=== PATIENT | male | born 1930 | race Caucasian/White ===

== ENCOUNTER 2017-09-02 09:26 | Emergency (ER) | payer OTHER, BC ==
[~2017-09-02] VITALS: Ht 193 cm; Wt 110.7 kg
[~2017-09-02 09:26] MED LIST: ABREVA2 GM TOP; ALLOPURINOL 10100 M1 PO; ALTOPREV40 M1; BUTRANS1 EAC3 TD; CENTRUM SILVER1 EAC2 PO; CIPRO500 MG PO; COLACE100 MG PO; COZAAR 50 MG TA50 M2; COZAAR 50 MG TA50 M2 PO; CUBICIN500 MG IVPB; DEMADEX20 MG PO; DEX4 GLUCOSE1 EACH PO; DEXTROSE 5025 GM/SYR IV PUSH; DULCOLAX5 MG PO; DUONEB 2.5-0.5 M3 ML INH; ENOXAPARIN30 MG/0.1 SUBQ; FENTANYL PA12 MCG/HR TD; FEVERALL650 MG RECTAL; FLOMAX0.4 MG PO; GABAPENTIN 100100 MG PO; GLIPIZIDE 10 MG10 MG PO; GLUCAGEN1 MG IM; GLUCOTROL5 MG PO; GLUTOSE GEL 1515 G1 PO; GUAIFEN-CODEIN120 ML PO; HYDROCODON-ACE1 EAC8 PO; HYDROCODONE-APA1 TA1 PO; IBUPROFEN 400400 M2; IBUPROFEN200 M1 PO; KEFLEX500 M1 PO; LIPITOR10 MG PO; LORAZEPAM 22 MG/1 ML IV PUSH; LOVASTATIN 20 M20 MG PO; MEROPENEM500 MG IV; NEURONTIN 300300 M1; NEURONTIN 300300 M1 PO; NORVASC10 MG PO; NOVOLOG100 UNIT/1 SUBQ; NYAMYC15 GM TOP; PERCOCET 7.5-31 EACH PO; PREDNISONE 20 M20 MG PO; PREDNISONE 5 MG5 M1; PROBIOTIC1 EAC1 PO; PROTONIX40 M4 PO; PULMICORT0.5 MG/22 INH; RENVELA800 MG PO; RESTASIS1 EACH OPHTHALMIC; RIFAMPIN 300 M300 M1 PO; STOOL SOFTENER100 MG PO; TENORMIN50 MG PO; TESSALON PERLE100 MG PO; TYLENOL325 MG PO; ZANAFLEX4 MG PO
== END 2017-09-02 18:22 | disposition home or self-care (01) ==
LOC: ER 09:26
DX: S61.211A Laceration without foreign body of left index finger without damage to nail, initial encounter (principal); S61.217A Laceration without foreign body of left little finger without damage to nail, initial encounter; S29.012A Strain of muscle and tendon of back wall of thorax, initial encounter; E11.9 Type 2 diabetes mellitus without complications; I10 Essential (primary) hypertension; Z88.6 Allergy status to analgesic agent; Z87.891 Personal history of nicotine dependence; W01.0XXA Fall on same level from slipping, tripping and stumbling without subsequent striking against object, initial encounter; Y93.89 Activity, other specified; Y92.89 Other specified places as the place of occurrence of the external cause; Y99.8 Other external cause status

== ENCOUNTER 2018-08-29 12:21 | Inpatient (IN) | payer OTHER, BC ==
[~2018-08-29] VITALS: Ht 193 cm; Wt 110.1 kg
--- NOTE | ~2018-08-29 | HC ---
[facility] [place] [address] CONSULTATION Name: GODFREY LEMUS Room #: 216-P ADM IN M.R.#: [id number] Admission: 08/29/18 ������������������ Attend Phys: Dewayne Gallo MD Discharge: ������������������ Date of : 32 Report #: [id number] THIS REPORT FOR: //name// CC: Myles Gallo REASON FOR CONSULTATION: Hyperkalemia. REASON FOR PRESENTATION: Post fall. HISTORY OF PRESENT ILLNESS: This is a very well-known patient. He is an 88-year-old who we had evaluated in the past for an acute kidney injury requiring dialysis for about one year. He presented yesterday after a fall and was found to have a fracture of the right hip. He was found to have an elevated creatinine and hyperkalemia mandating Nephrology consultation before proceeding with the surgical procedure. He has a very complicated history including MSSA bacteremia of the left foot that has required vancomycin for an extended period of time and resulting in an acute kidney injury requiring hemodialysis. He denies chest pain or shortness of breath. No fever or chills. He is now following with Dr. Benitez. He used to follow with Dr. Castillo in the past. PAST MEDICAL HISTORY: 1. Atrial fibrillation. 2. Hypertension. 3. Diabetes mellitus. 4. MSSA bacteremia. 5. Chronic kidney disease. 6. Umbilical hernia repair. 7. Cataract surgery. MEDICATIONS: 1. Sevelamer. 2. Gabapentin. 3. Atenolol. 4. Torsemide. 5. Glipizide. ALLERGIES: MORPHINE. SOCIAL HISTORY: He is an ex-smoker. No drug or alcohol abuse. REVIEW OF SYSTEMS: GENERAL: No fever or chills. CARDIOVASCULAR: No chest pain or palpitation. PULMONARY: No cough or hemoptysis. GASTROINTESTINAL: No nausea or vomiting. [facility] [address] [place] [address] CONSULTATION Name: GODFREY LEMUS Room #: 216-P [facility] IN [facility].#: [id number] Admission: 08/29/18 ������������������ Attend Phys: Dewayne Gallo MD Discharge: ������������������ Date of : 32 Report #: [id number] GENITOURINARY: No frequency, no urgency. MUSCULOSKELETAL: As per the history of present illness. PHYSICAL EXAMINATION: GENERAL: He is alert, oriented, in no apparent distress. VITAL SIGNS: Blood pressure is 149/56. HEAD AND NECK: No jugular venous distention, no bruit, no thyromegaly. CHEST: No crackles. CARDIOVASCULAR: No rub. ABDOMEN: Soft, nontender. LOWER EXTREMITIES: No edema, tenderness over the right hip area. LABORATORY DATA: Reviewed. White blood cell count 14.3. Sodium 140, potassium is down to 5.6 from 7.3, chloride is 108, carbon dioxide is 20, creatinine is down to 2.3. ASSESSMENT, IMPRESSION, PLAN: 1. Acute kidney injury. 2. Hyperkalemia. 3. Fracture, proximal femur. 4. We will retreat his hyperkalemia. 5. Source of hyperkalemia is probably dietary. 6. Treat his acidosis. 7. Should be ready to proceed with the planned surgery after we check his potassium this afternoon and it normalizes or in the morning after normalization of his potassium. ��������������������������������������������� ���������������������������������������� By: ��������������������������������������������� [id number] Juarez Martinez MD /nt
[2018-08-29 13:52] LABS: ABSOLUTE NEUTROPHILS 12.7 thou/uL (1.4-8.2); BASOPHILS 0.7 % (0.0-2.0); EOSINOPHILS 0.8 % (0.0-3.0); HEMATOCRIT 40.9 % (42.0-52.0); HEMOGLOBIN 13.8 gm/dL (14.0-18.0); LYMPHOCYTES 5.5 % (24.0-44.0); MCHC 33.8 g/dL (28.0-37.0); MCV 106.5 fL (80.0-100.0); PLATELET COUNT 193 thou/uL (150-400); RBC 3.84 mil/uL (4.50-6.00); RDW 14.6 % (10.5-14.5); WBC 14.4 thou/uL (4.0-11.0)
[2018-08-29 14:01] LABS: CALCIUM 9.1 mg/dL (8.5-10.1); CREATININE 2.9 mg/dL (0.7-1.3)
[2018-08-29 14:06] LABS: POTASSIUM 6.2 mmol/L (3.5-5.1)
[2018-08-29 15:43] VITALS: BP 187/83
--- NOTE | 2018-08-29 16:06 | NUR ---
INFORMED INPATIENT NURSE OF ABNORMAL LABS, UMANZOR NOT PLACED OF YET, FENTANYL AND RESULTS OF XRAY.
[2018-08-29 16:09] LABS: CALCIUM 8.8 mg/dL (8.5-10.1); CREATININE 2.8 mg/dL (0.7-1.3)
[2018-08-29 16:11] LABS: POTASSIUM 7.3 mmol/L (3.5-5.1)
[2018-08-29 16:30] VITALS: BP 166/71
--- NOTE | 2018-08-29 18:48 | NUR ---
ARRIVED ON CCU FROM ED. MOVED TO BED WITH 4 PERSON TRANSFER USING SLIDE SHEET. RIGHT HIP PAIN DESCRIBES 10/10. REMAINS NPO FOR POSSIBLE SURGERY. IV INFUSING WITHOUT DIFFICULTY. SON AT BEDSIDE.
[2018-08-29 20:24] VITALS: BP 148/49
[2018-08-30 00:01] VITALS: BP 140/35
[2018-08-30 04:29] VITALS: BP 149/56
[2018-08-30 05:42] LABS: HEMATOCRIT 35.3 % (42.0-52.0); MCH 36.1 pg (26.0-34.0); MCHC 33.9 g/dL (28.0-37.0); MCV 106.6 fL (80.0-100.0); RBC 3.31 mil/uL (4.50-6.00); RDW 14.6 % (10.5-14.5); WBC 14.3 thou/uL (4.0-11.0)
[2018-08-30 05:53] LABS: CALCIUM 8.1 mg/dL (8.5-10.1); CREATININE 2.3 mg/dL (0.7-1.3); PHOSPHORUS 3.8 mg/dL (2.5-4.9)
[2018-08-30 05:55] LABS: POTASSIUM 5.6 mmol/L (3.5-5.1)
[2018-08-30 08:18] VITALS: BP 162/61
--- NOTE | 2018-08-30 11:42 | NUR ---
Assumed pt care at 7am.Pt in bed alert and oreiented x4 but very anxious and constantly worried about not eating or having bowel movement for the past [address] Baldwin here,wanted pt secure clearance prior to surgery.Dr Gallo notified, he said pt potassium needs fixing first and will take care of that later.Son at bs visiting.Breakfast ordered and given to pt with am meds.Pain shot given as ordered.Will continue to monitor.
[2018-08-30 12:48] VITALS: BP 163/69
[2018-08-30 12:57] LABS: URINE BILIRUBIN NEGATIVE (Negative); URINE BLOOD 3+ (Negative); URINE CLARITY CLEAR; URINE COLOR YELLOW; URINE GLUCOSE-RANDOM* TRACE (Negative); URINE KETONES NEGATIVE (Negative); URINE LEUKOCYTES-REFLEX NEGATIVE (Negative); URINE NITRITE-REFLEX NEGATIVE (Negative); URINE PROTEIN (DIPSTICK) 2+ (Negative); URINE SPECIFIC GRAVITY 1.015 (1.005-1.035); URINE UROBILINOGEN 0.2 E.U./dl (0.2-1.0)
[2018-08-30 13:17] LABS: BACTERIA-REFLEX None Seen /HPF (None Seen); CASTS None Seen /LPF (None Seen); CRYSTALS None Seen /LPF (None Seen); MUCUS 0-3 Light strn/LPF (None Seen); SQUAMOUS 0-3 Few /LPF (0-3); URINE RBC 0-2 Rare /HPF (0-2); URINE WBC-REFLEX 6-15 Few /HPF (0-5)
[2018-08-30 17:32] VITALS: BP 182/56
--- NOTE | 2018-08-30 17:59 | EKG ---
[address] [address] ELECTROCARDIOGRAM REPORT Name: GODFREY LEMUS Room #: 216-P ADM IN M.R.#: [id number] ������������������ Admission: 08/29/18 ������������������ Attend Phys: Dewayne Gallo MD Discharge: ������������������ Date of : 32 Report #: [id number] ����������������������������������������������������������������� [id number] THIS REPORT FOR: //name// [facility] ED Test Date: 2018-08-29 Test Time: 14:59:50 Pat Name: GODFREY LEMUS Department: Room: 216 Gender: M Entry Level Web Developer: [facility] : 1930 Requested By: Anton Durbin Order Number: [id number] MD: Vincent Wick Measurements Intervals [place] Rate: 53 P: 81 LA: 62 QRS: 30 QRSD: 103 T: 58 QT: 461 QTc: 433 Interpretive Statements Sinus rhythm Short LA interval Compared to ECG 08/01/2015 09:23:36 Short LA interval now present Sinus arrhythmia no longer present Electronically Signed On 08-30-2018 17:59:27 CDT by Vincent Wick [email or web address] ��������������������������������������������� <ELECTRONICALLY SIGNED> ���������������������������������������� By: Vincent Wick MD ��������������������������������������������� 08/30/18 1759 [id number] Vincent Wick MD /CHRISTOPHE
[2018-08-30 19:21] VITALS: BP 184/57
[2018-08-31] VITALS (16 sets, daily range): BP systolic 131–177; BP diastolic 41–99
--- NOTE | 2018-08-31 03:45 | NUR ---
PATIENTS CARE WERE ASSUMED AT SHIFT CHANGE. PATIENT WAS ASSESSED AND MEDS WERE PASSED. PATIENT DID WET THE BED THIS SHIFT AND A LINEN CHANGE WAS NEEDED. IT TOOK FOUR OF US TO CHANGE THE BED DUE TO HIS FX LEG. HOURLY ROUNDING WAS DONE THE BED IS IN A LOW AND LOCKED POSITION. THE BED ALARM IS ON AND PATIENTS DAUGHTER IS AT THE BED SIDE.
[2018-08-31 04:19] LABS: ALBUMIN 2.9 g/dL (3.4-5.0); CALCIUM 8.3 mg/dL (8.5-10.1); PHOSPHORUS 3.5 mg/dL (2.5-4.9); POTASSIUM 5.7 mmol/L (3.5-5.1)
[2018-08-31 04:45] LABS: ABSOLUTE NEUTROPHILS 12.7 thou/uL (1.4-8.2); BASOPHILS 0.6 % (0.0-2.0); EOSINOPHILS 1.8 % (0.0-3.0); HEMATOCRIT 34.6 % (42.0-52.0); HEMOGLOBIN 11.8 gm/dL (14.0-18.0); LYMPHOCYTES 5.8 % (24.0-44.0); MCH 36.4 pg (26.0-34.0); MCV 107.2 fL (80.0-100.0); PLATELET COUNT 169 thou/uL (150-400); POLYS 84.8 % (36.0-66.0); RBC 3.23 mil/uL (4.50-6.00); RDW 14.4 % (10.5-14.5)
--- NOTE | 2018-08-31 11:41 | HC ---
[facility] [place] [address] CONSULTATION Name: GODFREY LEMUS Room #: 216-P ADM IN M.R.#: [id number] Admission: 08/29/18 ������������������ Attend Phys: Dewayne Gallo MD Discharge: ������������������ Date of : 32 Report #: [id number] THIS REPORT FOR: //name// CC: Myles Gallo DATE OF SERVICE: 08/30/2018 ORTHOPEDIC CONSULTATION CHIEF COMPLAINT: Right thigh pain. HISTORY OF PRESENT ILLNESS: The patient is a pleasant 88-year-old gentleman seen today for evaluation of his right femur fracture. The patient reports that he was ambulating at home moving some boxes, carrying them downstairs, slipped and fell on the stairs and landed on his right side. He sustained an injury to his right femur, was unable to ambulate and was subsequently brought to the [facility] for further care and treatment. He denies loss of consciousness or other injuries. He has had a history of kidney disease and dialysis and has seen Dr. Lopez for this. His potassium was elevated on admission. PAST MEDICAL HISTORY: Significant for multiple hand abrasions, congestive heart failure, end-stage renal disease, hyperkalemia, renal insufficiency. ALLERGIES: MORPHINE. THE PATIENT ALSO REPORTED AN ALLERGY TO VANCOMYCIN, WHICH HE REPORTED CAUSED RENAL FAILURE. PAST SURGICAL HISTORY: Left foot surgeries x 3, 2014, 2016, he reports he developed a Staph infection requiring multiple debridements. Atrial flutter ablation in 2014, TURP, lumbar degenerative disk disease, umbilical hernia repair, cataract surgery. CURRENT MEDICATIONS: Please see current MAR. SOCIAL HISTORY: The patient resides with in a condominium. Reports prior tobacco use. Currently drinks alcohol. Denies recreational drug use. PHYSICAL EXAMINATION: GENERAL: The patient is alert, oriented, answering questions appropriately. VITAL SIGNS: Most recent vitals include temperature 36.7, pulse 63, respirations 18, BP 163/69, pulse ox 95%. EXTREMITIES: Examination of the upper extremities revealed no obvious abnormalities. He reported full motion without tenderness. Pelvis is stable to AP and lateral compression. He has tenderness about the groin, proximal and [facility] [address] [place] [address] CONSULTATION Name: GODFREY LEMUS Room #: 216-P ADM IN M.R.#: [id number] Admission: 08/29/18 ������������������ Attend Phys: Dewayne Gallo MD Discharge: ������������������ Date of : 32 Report #: [id number] proximal to mid thigh deformity is present. Mild swelling is noted. He is unable to actively move the hip and knee due to pain. He has minimal movement in the toes and ankles, but is able to minimally flex and extend the toes. Reports intact sensation. Mild leg edema noted. The left leg demonstrates no obvious tenderness. No wounds or injuries. He has multiple well-healed incisions about the foot. Mild swelling about his left foot is noted. RADIOGRAPHS: Reveal a comminuted proximal femoral shaft/subtrochanteric femur fracture with mild displacement. LABORATORY DATA: Reviewed. Elevated potassium is noted, elevated creatinine. IMPRESSION: 1. Right proximal closed femoral shaft fracture/ subtrochanteric, comminuted. 2. Multiple medical comorbidities. PLAN: Discussed the patient's care with Dr. Gallo this morning. His potassium was still elevated. We will tentatively schedule the patient tomorrow morning for operative repair of his fracture. We have reviewed the risks, benefits, alternatives and potential complications of his injury as well as the proposed treatment. He is interested in proceeding with an intramedullary nailing of his fracture when medically stable. Questions were encouraged and all were answered. The need for postoperative care and therapy was discussed. We will have protective services case worker and physical therapy assess the patient postoperatively as well. We will need to clarify his MRSA status as to whether or not he is a carrier as well as his ability to utilize vancomycin or other antibiotics. Questions were encouraged, all were answered. ��������������������������������������������� <ELECTRONICALLY SIGNED> ���������������������������������������� By: Junior Riojas MD ��������������������������������������������� 08/31/18 1141 1424 0250 Junior Riojas MD /nt
--- NOTE | 2018-08-31 14:19 | NUR ---
Patient returned from sx sp with son at bedside. Patient admits post fall sustaining femor fx. [facility] and [facility]. 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 Patient assists his who son reports she has some memory issues. Son reports his sister assisting with mom. There are 6 children who are supportive and involved. Patient has been at [facility] in past. Reviewed post acute care and role of casemgt with son. Left medicare option list. [facility] following.
--- NOTE | 2018-08-31 18:23 | NUR ---
TO O.R. EARLY THIS SHIFT BY BED. BACK AT 1300. POSTOP VS. MEDICATED FOR RIGHT LEG PAIN PRN. HTN NOTED. POSTOP DRESSINGS X2 RT HIP/THIGH CDI EXCEPT FOR ONE 3X3CM AREA OUTLINED IN TIAIE. ADULT SON AT BEDSIDE. CLEAR LIQUIDS SINCE RETURNING. MINOR URINE LEAK THIS AFTERNOON, PAINFUL LOG ROLLING FOR CLEANUP. PATIENT STATES HE VOIDS EVERY HALF HOUR; 100ML DARK URINE NOTED IN URINAL. UMANZOR PLACED ORDERED FOR PATIENT POSTOP COMFORT AND TO KEEP SURGICAL DRESSINGS CDI. FREQUENT CHECKS; WILL CONTINUE TO MONITOR.
[2018-09-01] VITALS (7 sets, daily range): BP systolic 126–171; BP diastolic 45–64
[2018-09-01 03:16] LABS: HEMATOCRIT 29.4 % (42.0-52.0); HEMOGLOBIN 9.9 gm/dL (14.0-18.0); MCH 36.5 pg (26.0-34.0); MCHC 33.7 g/dL (28.0-37.0); MCV 108.4 fL (80.0-100.0); RBC 2.71 mil/uL (4.50-6.00); RDW 14.2 % (10.5-14.5); WBC 12.9 thou/uL (4.0-11.0)
[2018-09-01 03:20] LABS: ALBUMIN 2.5 g/dL (3.4-5.0); CALCIUM 7.7 mg/dL (8.5-10.1); CREATININE 2.3 mg/dL (0.7-1.3); PHOSPHORUS 3.5 mg/dL (2.5-4.9)
[2018-09-01 03:31] LABS: POTASSIUM 5.4 mmol/L (3.5-5.1)
--- NOTE | 2018-09-01 06:52 | NUR ---
PATIENTS CARES WERE ASSUMED AT SHIFT CHANGE. PATIENT WAS ASSESSED AND MEDS WERE PASSED. PATIENT HAD HIS DIET UPGRADED THIS MORNING AND GETS A BREAKFEST TRAY. HE HAS SOME ANXIETY ABOUT PT GETTING HIM OUT O BED. HOURLY ROUNDING WAS DON. THE BED IS IN A LOW AND LOCKED POSITION. THE BED ALARM IS ON.
--- NOTE | 2018-09-01 17:14 | NUR ---
sp with patient and granddtr at bedside. Patient strongly prefers [facility] for rehab. Granddtr also hopeful [facility] accepted. Provider form completed and on the chart.
--- NOTE | 2018-09-01 18:32 | NUR ---
ASSUMED CARE OF PATIENT IN AM, STATES HE IS HUNGRY AND WANTS HIS BREAKFAST. EXPLAINED THAT BREAKFAST TRAYS WERE ON THEIR WAY. GOT HIM A MILK TO HOLD HIM OVER. NO COMPLAINTS OF PAIN OR NAUSEA. SR ON THE MONITOR. HELPING PATIENT TURN EVERY 2 HOURS. FIRST STOOL AT 0900 WAS VERY STIFF AND DIFFICULT FOR PAITENT. LAXATIVE GIVEN AND SECOND STOOL LARGER AND SOFTER. UP WITH PT TO SIDE OF BED BUT UNABLE TO TOLERATE GETTING TO CHAIR. LM IV ACCIDENTALLY PULLED OUT AND NEW RFA 22G IV PLACED. SALINE LOCK. R HIP DRESSING INTACT WITH SMALL SHADOW OF OLD BLOOD NOTED AND MARKED. ICE PACK PRN, HEELS ELEVATED ON PILLOWS
[2018-09-02 04:54] VITALS: BP 143/52
[2018-09-02 05:29] LABS: ALBUMIN 2.4 g/dL (3.4-5.0); CALCIUM 7.7 mg/dL (8.5-10.1); CREATININE 2.3 mg/dL (0.7-1.3); PHOSPHORUS 3.3 mg/dL (2.5-4.9); POTASSIUM 4.8 mmol/L (3.5-5.1)
--- NOTE | 2018-09-02 06:22 | NUR ---
PT POST OP DAY 2 REPAIR OF FEMUR FX. PT BEEN ON BEDREST WHOLE NIGHT ALTHOUGH REPORTS WORKING WITH PT/OT YESTERDAY . UNWILLING TO SHIFT POSITION OFTEN. DRESSING C/D/I. USING ICE TO ELLEVIATE PAIN. DENIES CHEST PAIN. REPORTS PAIN IN THE R LEG DURING MOVEMENT. NO OTHER COMPLAINS AT THIS TIME. WILL CONTINUE TO FOLLOW PLAN OF CARE.
[2018-09-02 08:00] VITALS: BP 140/65
[2018-09-02 08:25] LABS: HEMATOCRIT 27.5 % (42.0-52.0); HEMOGLOBIN 9.3 gm/dL (14.0-18.0); MCHC 33.9 g/dL (28.0-37.0); MCV 109.2 fL (80.0-100.0); RBC 2.52 mil/uL (4.50-6.00); RDW 14.5 % (10.5-14.5); WBC 10.9 thou/uL (4.0-11.0)
[2018-09-02 08:38] LABS: CALCIUM 8.2 mg/dL (8.5-10.1); CREATININE 2.4 mg/dL (0.7-1.3); MAGNESIUM 2.4 mg/dL (1.8-2.4); POTASSIUM 4.9 mmol/L (3.5-5.1)
[2018-09-02 12:21] VITALS: BP 137/44
[2018-09-02] MEDS ORDERED: MIRALAX17 GM PO (13:02)
[2018-09-02] MEDS ORDERED: HEPARIN SO5000 UNIT/ SUBQ (13:51)
--- NOTE | 2018-09-02 14:50 | NUR ---
Pt accepted for admission to [facility] acute rehab. Pt agreeable and family supportive. Pt's gdtr is a ST here;therefore the pt prefers this location. The pt is doing well postop and has been cleared to dc to rehab today. Family bedside this afternoon. Case discussed with the care team.
--- NOTE | 2018-09-03 12:59 | O ---
[facility] [place] [address] OPERATIVE REPORT Name: GODFREY LEMUS Room #: 216-P [facility] IN M.R.#: [id number] Admission: 08/29/18 ������������������ Attend Phys: Dewayne Gallo MD Discharge: 09/02/18 ������������������ Date of : 32 Report #: [id number] THIS REPORT FOR: //name// CC: Myles Gallo PREOPERATIVE DIAGNOSIS: Right subtrochanteric femur fracture, comminuted, status post fall. POSTOPERATIVE DIAGNOSIS: Right subtrochanteric femur fracture, comminuted, status post fall. PROCEDURE PERFORMED: Right trochanteric femoral nailing of subtrochanteric femur fracture. SURGEON: Junior Riojas M.D. ANESTHESIA: General. FLUIDS: Approximately 500 mL crystalloid. ESTIMATED BLOOD LOSS: Approximately 50 mL. IMPLANTS UTILIZED: Synthes long TFN nail 440 mm x 12 mm, 130 degrees; 105-mm helical locking blade with 2 distal locking screws. DESCRIPTION OF PROCEDURE PERFORMED: After proper identification of the patient and operative site in the preoperative holding area, the operative site was signed by myself. The patient had been cleared by Medicine as well as Anesthesia to proceed with operative intervention today. He was brought back to the operative suite after induction of satisfactory general anesthesia. He was carefully positioned on the [place] fracture table. Well-padded foot stabilization was utilized. The patient's displaced fracture was gently reduced with a simple reduction maneuver and then gentle longitudinal traction. The obliquity of this comminuted fracture keyed in nicely. Moderate soft tissue swelling of the thigh was noted, but the compartments were still soft and palpable. The leg demonstrated mild edema as well as the foot. The hip and leg were then sterilely prepped and draped in the usual manner. Final skin draping was with an [place] isolation drape. Intraoperative C-arm was used throughout the procedure. An incision proximal to the greater trochanter was planned. Skin was incised sharply. Dissection was carried down to the tip of the greater trochanter and an insertion awl was placed on this. It was carefully advanced into the femur. There appeared to be relatively good bone quality. As this was advanced, a guidewire was then utilized and was passed down the intramedullary canal to the more distal aspect of the femur. Its position was verified. Fracture reduction was verified and it was checked throughout the entire length [address] [address] OPERATIVE REPORT Name: GODFREY LEMUS Room #: 216-P [facility] IN M.R.#: [id number] Admission: 08/29/18 ������������������ Attend Phys: Dewayne Gallo MD Discharge: 09/02/18 ������������������ Date of : 32 Report #: [id number] of the femur. At this point, serial reaming up to 13.5 mm in the canal near the isthmus was performed and a 12 mm x 440 mm nail was chosen. Proximal reaming was performed for the trochanteric flare of the nail. The nail was then placed on its insertion handle carefully, impacted into position over the guidewire which was removed. After it was fully seated, its position was checked proximally and distally. Next, through separate more distally based incision, the drill sleeves were advanced to the lateral cortex of the femur, where a guide pin was inserted into the femoral head. Its position was verified to be in satisfactory position in the AP and lateral planes. Outer cortex was reamed and due to the relatively good bone quality, the helical blade reamer was utilized. A 105-mm helical blade was carefully impacted into position. It was extra-articular in the AP, oblique and lateral planes. Proximal locking screw was tightened and then the drill sleeves and guide pin were removed. Next, using perfect mashpee technique distally, both the static and a dynamic locking screw were inserted for that bicortical fixation. Image verified that these were through the nail and all wounds were thoroughly irrigated with normal saline. A #1 Vicryl was used to close the fascia, 2-0 Vicryl for the subcutaneous tissues and final skin closure was with juan josé. A sterile dressing was applied. He was awakened and transferred to the recovery room in stable condition. ��������������������������������������������� <ELECTRONICALLY SIGNED> ���������������������������������������� By: Juinor Riojas MD ��������������������������������������������� 09/03/18 1259 1141 1203 Junior Riojas MD /nt
== END 2018-09-02 14:51 | DRG 480 ==
LOC: ER 12:21 → EROBS 14:58 → 2N 14:58
PROVIDERS: Emergency Medicine; Hospitalist; Internal Medicine; ADMIT Hospitalist
PROC: 0QH606Z Insertion of Intramedullary Internal Fixation Device into Right Upper Femur, Open Approach (ICD-10-PCS; principal; 2018-08-31)
DX: S72.21XA Displaced subtrochanteric fracture of right femur, initial encounter for closed fracture (principal); N17.0 Acute kidney failure with tubular necrosis; I13.2 Hypertensive heart and chronic kidney disease with heart failure and with stage 5 chronic kidney disease, or end stage renal disease; N18.4 Chronic kidney disease, stage 4 (severe); I48.91 Unspecified atrial fibrillation; E87.5 Hyperkalemia; I50.9 Heart failure, unspecified; E11.22 Type 2 diabetes mellitus with diabetic chronic kidney disease; E11.40 Type 2 diabetes mellitus with diabetic neuropathy, unspecified; E11.51 Type 2 diabetes mellitus with diabetic peripheral angiopathy without gangrene; M47.896 Other spondylosis, lumbar region; D63.8 Anemia in other chronic diseases classified elsewhere; D72.829 Elevated white blood cell count, unspecified; G89.4 Chronic pain syndrome; E78.5 Hyperlipidemia, unspecified; Z98.49 Cataract extraction status, unspecified eye; Z88.6 Allergy status to analgesic agent; Z87.891 Personal history of nicotine dependence; Z47.89 Encounter for other orthopedic aftercare; Z88.1 Allergy status to other antibiotic agents; Z79.899 Other long term (current) drug therapy
CPT/HCPCS: 10081; 50010; 50101; 50133; 50386; 50635; 51412; 51538; 51817; 52145; 52304; 55430; 56525; 57092; 62110; 62900; 70005

== ENCOUNTER 2018-09-02 13:23 | Inpatient (IN) | payer OTHER, BC ==
[~2018-09-02] VITALS: Ht 248 cm; Wt 112.6 kg
[~2018-09-02 13:23] MED LIST changes: -HYDROCODONE-APA1 TA1 PO; +MIRALAX17 GM PO; +NORCO 7.5-3251 EACH PO
[2018-09-02] MEDS ORDERED: HEPARIN SO5000 UNIT/ SUBQ (13:51)
--- NOTE | 2018-09-02 15:00 | NUR ---
TO [facility] FOR INPT REHAB. REPORT CALLED TO [place] PAIGE. TAKEN TO [facility] BY RECLINER, ACCOMPANIED BY EDOUARD VÁSQUEZ PT, AND MYSELF. HIS AND DTRS WERE HERE THEN, SO THEY KNOW WHERE HE IS. TELE DC'D; UPDATE GIVEN TO LA PAIGE.
[2018-09-02 15:14] VITALS: BP 147/74
[2018-09-02 16:01] VITALS: BP 147/74
--- NOTE | 2018-09-02 18:31 | NUR ---
88 YO MALE ADMITTED FROM 2N TO ROOM 504. A&OX4, HAS TRANSFERED WITH PT. UMANZOR CATH IN PLACE. POST OP DAY #2. DRSG TO R HIP INTACT NO NEW DRAINAGE NOTED SINCE SURGERY. IV INTACT TO R ARM. DENIES NEED FOR PAIN MED AT THIS TIME. ICE PACK IN PLACE. VSS. PT DID GET BRADYCARDIC ON 2N. ORIENTED PT TO ROOM/ CALL LIGHT.CONSULTS CALLED IN. WILL CONT POC.
[2018-09-02 19:10] VITALS: BP 132/40
[2018-09-02 20:10] VITALS: BP 140/62
[2018-09-02 21:10] VITALS: BP 75/37
--- NOTE | 2018-09-02 21:44 | NUR ---
PT ASSESSMENT COMPLETED AND VSS. MEDS GIVEN ORDERED AND WELL TOLERATED. FALL PRECAUTIONS IN PLACE. ASST WITH REPOSITION FOR COMFORT. ABDUCTER PILLOW. PRN PAIN MEDICATION WORKING FOR BACK AND RIGHT LEG PAIN. SUPPORTIVE FAMILY AT BEDSIDE. SLEEPING WELL. WILL CONTINUE TO MONITOR FREQUENTLY.
[2018-09-03 05:19] LABS: HEMATOCRIT 28.8 % (42.0-52.0); HEMOGLOBIN 9.8 gm/dL (14.0-18.0); MCH 36.8 pg (26.0-34.0); MCV 108.3 fL (80.0-100.0); RBC 2.66 mil/uL (4.50-6.00); RDW 14.5 % (10.5-14.5); WBC 9.7 thou/uL (4.0-11.0)
[2018-09-03 05:34] LABS: ALBUMIN 2.4 g/dL (3.4-5.0); CREATININE 2.3 mg/dL (0.7-1.3); PHOSPHORUS 4.4 mg/dL (2.5-4.9); POTASSIUM 4.9 mmol/L (3.5-5.1)
[2018-09-03 08:09] VITALS: BP 117/35
--- NOTE | 2018-09-03 12:47 | NUR ---
cm visited with pt at bedside after son left from visit and had communion. intro to cm, transition of care and team meeting. pt A & o x 3 and able to make his needs know. c/o of right foot resting nex to foot pedal. bedside nurse assisted with support on right leg while placed soft pillow under pt calf. " that is better thanks"/shelli. pt reported " live in [facility], had fall carrying boxes out in garage. use elevator down to get to garage. still drive. independent prior to hospital. have can, stand to shower, have grab bars. used electric scooter 2 years ago with did dialysis. been to [facility] for rehab before and if need home health use [facility]. have pain from knee to hip constantly."/shelli. letting pt rest, report passed on to bedside nurse for pt c/o pain. will cont following as needed for dc needs.
--- NOTE | 2018-09-03 13:18 | NUR ---
Nutrition: Consult received, no reason stated. Pt admit to rehab S/P femur fx, POD 3. Intake is variable but overall down since surgery which he relates to pain. Reports his granddtr orders his meals. Enjoys supplements. Change to glucerna with hx DM, Carb controlled diet. BG 94-259. Prior hx of ESRD on HD but none x one year. Obtained food preferences. Stable weights. Low risk.
[2018-09-03 15:00] LABS: FOLIC ACID 29.8 ng/mL (8.6-58.9)
[2018-09-03 19:20] VITALS: BP 136/36
--- NOTE | 2018-09-03 20:10 | NUR ---
ASSUMED CARE OF PATIENT AT 0715. PATIENT IS A&OX4, VITAL SIGNS ARE STABLE. PATIENT TRANSFERS TO WITH 1 PERSON ASSISTA USING SLIDING BOARD. PATIENT TAKES MEDICATIONS WHOLE WITH THIN LIQUIDS AND HAS REPORTED PAIN DURING SHIFT, WHICH WAS TREATED WITH MEDICATIONS PER ORDERS. PATIENT PARTICIPATED IN SCHEDULED THERAPIES. UMANZOR CATHETER IN PLACE, ACCU CHECKS AC/HS. IV IN RIGHT ARM FLUSHES APPROPRIATELY AND IS WITHOUT S/S OF COMPLICATIONS, DRESSINGS ARE CLEAN, DRY, AND INTACT. ORIGINAL SURGICAL DRESSINGS TO THE RLE ARE INTACT, SOME DRAINAGE TO MIDDLE DRESSING. FALL PRECAUTIONS ARE IN PLACE AND NURSING WILL CONTINUE TO MONITOR.
--- NOTE | 2018-09-04 03:19 | NUR ---
TURNED TO LEFT SIDE TO KEEP PATIENT OF PURPLR LOW SACRUM. APPRECIATES PERCOCET. RIGHT HIP EDEMATOUS, SEROSANGUINOUS DRAINAGE FROM STAPLED INCISION SITES, BOTH SITES REINFORCED WITH ABD. UMANZOR TO DD
--- NOTE | 2018-09-04 05:00 | NUR ---
ORIGINAL SURGICAL DRESSINGS SATURATED WITH SEROSANGUINOUS DRAINGE MORE CLEAR YELLOW THAN PINK, ALL 3 STAPLED AREAS HAD DRESSINGS REMOVED AND REPLACED WITH ONE FLUFF GAUZE AND ONE HALF OF A [place] BANDAID
[2018-09-04 08:03] VITALS: BP 124/39
[2018-09-04 08:36] LABS: ALBUMIN 2.4 g/dL (3.4-5.0); CALCIUM 8.1 mg/dL (8.5-10.1); CREATININE 2.6 mg/dL (0.7-1.3); PHOSPHORUS 4.8 mg/dL (2.5-4.9)
[2018-09-04 19:50] VITALS: BP 159/64
--- NOTE | 2018-09-04 19:59 | NUR ---
ASSUMED CARE AT APPROX 0715. PATIENT A/O X4. LOW DIASTOLIC BP NOTED, PHYSICIAN NOTIFIED. NO NEW ORDERS RECEIVED, NIGHT RN NOTIFIED OF CURRENT PARAMETERS. PATIENT C/O CONSTIPATION. LAXATIVES ADMINISTERED PER ORDERS, PATIENT HAD SEVERAL BM'S THIS SHIFT, KUB ORDERED, FINDINGS READ MILD CONSTIPATION. PATIENT REPORTED RELIEF BY END OF SHIFT, C/O PAIN/ITCHING IN RECTUM, HEMMORHOIDS NOTED, PREPARATION H ORDERED BY PHYSICIAN. BLOOD GLUCOSE MONITORED, TREATED WITH ORAL MEDS. HIP PRECAUTIONS MAINTIANED, PATIENT'S RLE EDEMATOUS, PULSES PRESENT, EXTREMITY WARM TO TOUCH. DRESSING TO JEFFRY ON RLE CHANGED PRN THIS SHIFT R/T SERO-SANGUINOUS DRAINAGE. PARTICIPATED IN THERAPY THIS DATE, UP TO WC. FALL PRECAUTIONS IN PLACE. ROUNDED ON HOURLY. RESTING IN BED AT CHANGE OF SHIFT.
--- NOTE | 2018-09-04 22:39 | NUR ---
EMERGENCY CONTACT INFORMATION HAS CHANGED. FOR THURSDAY THROUGH THURSDAY, THE EMERGENCY CONTACT IS PT'S DAUGHTER TIFFANY CURTIS AT [phone]. FOR THURSDAY AM THROUGH THURSDAY PM, THE EMERGENCY CONTACT IS AMENA WHITTINGTON, PT'S OTHER DAUGHTER AT [phone], PER NOTE FROM ADMISSIONS LIAISON LILIANA ROMAN OT. THIS WAS PASSED ON TO THE P-SHIFT RN WELL.
--- NOTE | 2018-09-05 03:40 | NUR ---
PATIENT SLEEPY AT CHANGE OF SHIFT. ANSWERS QUESTIONS APPROPRIATELY. DENIES PAIN. DRESSING DRY AND INTACT. C/O CONSTIPATION, HOWEVER SOME RELIEF WAS NOTED YESTERDAY. BS MONITORED PER ORDER. NEW ORDER FOR PREP H COMPLETED, NO C/O ITCHING AT THIS TIME. TOE TOUCH WB ON RIGHT LEG. PATIENT BECAME A LITTLE RESTLESS DURING THE NIGHT AND WAS YELLING OUT WANTING TO GET OUT OF BED. VERY HEAVY TRANSFER AND NOT FOLLOWING INSTRUCTIONS. PATIENT REMAINED IN BED. UMANZOR TO D/D WITH YELLOW URINE. WILL MONITOR.
[2018-09-05 07:06] LABS: GLYCOHEMOGLOBIN (HGB A1C) 7.3 % (4.8-5.6)
[2018-09-05 07:15] VITALS: BP 132/62
--- NOTE | 2018-09-05 19:06 | NUR ---
ASSUMED CARE OF PT AT APPROX. 0715. PATIENT IS A&OX4 AND VITAL SIGNS ARE STABLE. BLOOD GLUCOSE MONITORED AC/HS AND TREATED WITH ORAL MEDICATIONS. PT TAKES MEDICAITONS WHOLE WITH THIN LIQUIDS. SURGICAL SITE IS WELL APPROXIMATED WTIH JEFFRY AND COVERED WITH [place] DRESSINGS AND GAUZE, CHANGED TWICE DURING SHIFT, DUE TO SS DRAINAGE. PATIENT HAS RED BLANCHABLE AREAS TO BUTTOCKS, BARRIER CREAM APPLIED AND PT TURNED Q2H. IV REMOVED FROM RIGHT FOREARM. PATIENT REPORTED "BURNING" FOLLOWING BOWEL MOVEMENT AND WAS TREATED WITH PREPARATION H. PAITNET PAIN TREATED WITH MEDICAITONS PER ORDERS. UMANZOR CATHETER IN PLACE AND DRAINING APPROPRAITELY. FENTANYL PATCH TO THE RIGHT CHEST. FALL PRECAUTIONS IN PLACE AND NURSING WILL CONTINUE TO MONITOR.
[2018-09-05 22:02] VITALS: BP 139/55
--- NOTE | 2018-09-06 02:10 | NUR ---
CONTINUED YELLOW DRAINAGE FROM SURGICAL STAPLED AREAS ON RIGHT UPPER LEG. DUE TO IRRITATION AT EDGE OF 8x6 DRESSING NOTICED AT REMOVAL, OPTIFOAM DRESSINGS APPLIED AT 45 DEGREE ANGLE TO AVOID REPEAT SKIN TEARS. THICKNESS AND PURPLE DISCOLORATION NOTED AT INTERIOR EDGE OF BILATERAL BUTTOCKS, PATIENT MADE COMFORTABLE ON LEFT SIDE WITH MOISTURE BARRIER APPLIED TO RECTUM AND BUTTOCKS.
[2018-09-06 08:35] VITALS: BP 120/54
--- NOTE | 2018-09-06 13:04 | NUR ---
ASSUMED CARE AT APPROX 0715. PATIENT A/O X4. VSS. METOPROLOL HELD PER ORDERS. ABDOMEN SOFT, DENIES CONSTIPATION. C/O PAIN IN RLE, PAIN MEDS GIVEN PER ORDERS, ICE PACK OFFERED. C/O BACK PAIN- VOLTAREN GEL APPLIED. BLOOD GLUCOSE MONITORED, GLIPIZIDE PO ADMINISTERED. DRESSINGS TO RLE C/D/I. WOUND CARE TEAM CONSULTED REGARDING DRAINAGE, NOTED TO BE LESS TODAY THAN YESTERDAY PER REPORT. FALL PRECAUTIONS IN PLACE. PATIENT PARTICIPATING IN THERAPY. TRANSFER X2 PERSON TO BED, STAND & PIVOT. RESTING IN BED AT THIS TIME. WILL CONTINUE TO MONITOR.
--- NOTE | 2018-09-06 14:35 | NUR ---
WOUND CONSULT; ROUNDING TODAY WITH DR JOSE WEST AND MASOUD VANEGAS RN. RIGHT HIP INCISION SITES(3) NOTED OOZING A SMALL AMOUNT OF SEROSANGINOUS DRAINGE. PATIENT WAS ABLE TO TURN HIMSELF. RECOMMENDATION; APPLY AQUACEL AG TO STAPLE/INCISION SITES, COVER WITH A BOARDERED FOAM DRESSING CHANGE M/W/F AND PRN IF DRAINAGE CONTINUES. DISCUSSED WITH RN
[2018-09-06 22:21] VITALS: BP 134/44
--- NOTE | 2018-09-07 05:45 | NUR ---
4 SMALL AND ONE MODERATE BM OVERNIGHT. MOISTURE BARRIER AND PREPARATION H TO RECTAL AREA. PENILE AND SCROTAL EDEMA CONTINUE. 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 AT THIS TIME HIS FEET ARE WARM WITH GOOF PULSES AND HE MOVE FEET, TOES, AND ANKLES EASILY.
[2018-09-07 06:42] LABS: ALBUMIN 2.3 g/dL (3.4-5.0); CALCIUM 7.7 mg/dL (8.5-10.1); CREATININE 2.2 mg/dL (0.7-1.3); PHOSPHORUS 4.4 mg/dL (2.5-4.9); POTASSIUM 5.4 mmol/L (3.5-5.1)
[2018-09-07 08:00] VITALS: BP 134/56
--- NOTE | 2018-09-07 10:01 | NUR ---
PT C/O PAIN IN BUTTOCKS, AND HAD RECENTLY BEEN PUT BACK TO BED FOLLOWING AN ATTEMPT TO HAVE A BM ON THE BSC WITHOUT SUCCESS. PT TOOK HYDROCODONE REQUESTED, AND WAS GIVEN A SUPPOSITORY PER REQUEST AND IS NOW POSITIONED ON HIS LEFT SIDE WITH CALL LIGHT IN HAND AND ALL NEEDS IN REACH. PT WAS INSTRUCTED TO CALL FOR ASSIST WHEN NEEDING TO GET OOB TO HAVE A BM, AND RN TO CHECK ON HIM IN ABOUT 30 MINUTES IF HE DOESN'T CALL BEFORE THAT TIME.
--- NOTE | 2018-09-07 10:16 | HC ---
[facility] [place] [address] CONSULTATION Name: GODFREY LEMUS Room #: 504-2 ADM IN M.R.#: [id number] Admission: 09/02/18 ������������������ Attend Phys: Chandler Ochoa MD Discharge: ������������������ Date of : 32 Report #: [id number] THIS REPORT FOR: //name// CC: Chandler Campo DATE OF SERVICE: 09/04/2018 Neurobehavioral Status Examination ATTENDING PHYSICIAN: Chandler Ochoa MD BOOKING PRIZER: Marck Marquez, PhD CLINICAL PRESENTATION: The patient is an 88-year-old male, admitted to the [facility] Rehabilitation Unit on 09/02/2018 for comprehensive inpatient rehabilitation program. The patient was initially admitted to the [facility] on 08/29/2018 following an incident, in which he suffered a right femur fracture as a result of a fall when carrying boxes into a new apartment. He is reported to have lost his balance and landed on the right hip. His past medical history ncludes atrial fibrillation, diabetes mellitus, hypertension and dialysis for approximately 6 months. The patient also has had a left foot surgery times 3 and a TURP. Assessment on the rehab unit included right subtrochanteric femur fracture, status post nailing, hyperkalemia, acute renal insufficiency superimposed on chronic kidney disease, premorbid peripheral neuropathy, chronic pain syndrome, type 2 diabetes mellitus, hypertension, and hyperlipidemia. A complete description of his medical condition, history and medications can be found in his medical record. Neuropsychological consultation was requested to provide assistance in the assessment of cognitive and emotional status and to provide recommendations and services. Prior to this most recent medical event, he was living independently with his in their home. He reports having been independent with instrumental activities of daily living and driving. However, his is reported to require assistance with instrumental activities of daily living. The patient is a college graduate. He is a of the [employer]. 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 He has 6 children. He has a supportive family. TECHNIQUES UTILIZED: Clinical interview, review of medical records, staff consultation and behavioral observation, Mini-Mental Status Exam 2 brief [facility] [address] [place] [address] CONSULTATION Name: GODFREY LEMUS Room #: 504-2 [facility] IN M.R.#: [id number] Admission: 09/02/18 ������������������ Attend Phys: Chandler Ochoa MD Discharge: ������������������ Date of : 32 Report #: [id number] version. EXAMINATION FINDINGS: The patient was alert during the interview. However, he was restless and fidgety. He appeared in much pain and indicated severe discomfort as a result of rectal pain. His mood appeared irritable and easily frustrated. He describes having difficulty with sleep and variability in memory and word finding. Increased anxiety is noted. Frustration in regard to his medical condition along with concern in regard to his 's wellbeing and their need for increasing assistance from family is also contributing to his overall adjustment. His performance on the MMSE 2 brief version was extremely low with a raw score of 12/16 and a T score of 28, which is at the 1st percentile. He was 1/3 for initial registration, 5/5 for orientation to time and place and 1/3 for immediate recall of 3 items after brief time delay and distraction. The MMSE 2 SV was not attempted given the extent of distress that he appeard to experience. The patient is alert and oriented. However, physical discomfort is likely interfering with his ability to sustain concentration and maintain adequate immediate recall. I have attempted to contact family, but was unsuccessful during his initial assessment. He is reported as having a chronic pain disorder. DIAGNOSTIC IMPRESSION: Neurocognitive disorder, unspecified, with irritability and decreased frustration tolerance - extent to be determined, likely in the mild range. Unspecified anxiety disorder. RECOMMENDATIONS: Continued attempt to contact family to obtain increased clarification of premorbid functioning. A chronic pain disorder is reported and a treatment program is indicated to assist in management. The use of behavioral pain management strategies may be helpful. The patient will likely require increased assistance in the management of finances and nutrition and medication upon his return home. He may also benefit from an antidepressant medication that with pain management features, e.g., Cymbalta. Reducing narcotic medication as medically appropriate and supervised may also help lessen any disorientation as a result of sedating medication as well as use of a bowel program, which the patient describes being a severe deficit. A followup neuropsych assessment is indicated to clarify cognitive functioning upon resolution of his acute medical condition. [address] [address] CONSULTATION Name: GODFREY LEMUS Room #: 504-2 ADM IN M.R.#: [id number] Admission: 09/02/18 ������������������ Attend Phys: Chandler Ochoa MD Discharge: ������������������ Date of : 32 Report #: [id number] Thank you very much for allowing me to provide the consultation on this patient. ��������������������������������������������� <ELECTRONICALLY SIGNED> ���������������������������������������� By: Marck Marquez, PhD ��������������������������������������������� 09/07/18 1016 [id number] Marck Marquez, PhD /nt
--- NOTE | 2018-09-07 10:23 | HC ---
[facility] [place] [address] CONSULTATION Name: GODFREY LEMUS Room #: 504-2 ADM IN M.R.#: [id number] Admission: 09/02/18 ������������������ Attend Phys: Chandler Ochoa MD Discharge: ������������������ Date of : 32 Report #: [id number] THIS REPORT FOR: //name// CC: Chandler Campo DATE OF SERVICE: 09/06/2018 CHIEF COMPLAINT: Surgical wounds to the right lower extremity. HISTORY OF PRESENT ILLNESS: This is an 88-year-old male patient who was admitted with a right femur fracture. He was ambulating and moving some boxes and carrying them downstairs. He slipped and fell on the stairs, landing on his right side. He has undergone open reduction and internal fixation, right intramedullary nailing performed on 08/31/2018. He was noted to have some increased drainage from the surgical sites and I have been asked to see him with regard to wound care. PAST MEDICAL HISTORY: Positive for chronic kidney disease, hypertension, hyperlipidemia, type 2 diabetes mellitus, neuropathy, peripheral vascular disease and atrial fibrillation. ALLERGIES: MORPHINE. MEDICATIONS: Include tizanidine, buprenorphine, fentanyl, Colace, Renvela, Flora, Neurontin, Zyloprim, lovastatin, Tenormin, Glucotrol, Demadex. SOCIAL HISTORY: The patient admits to occasional alcohol consumption. He is a former smoker. FAMILY HISTORY: Noncontributory. REVIEW OF SYSTEMS: CONSTITUTIONAL: The patient denies fever, chills or weight loss. NEUROLOGICAL: The patient denies focal weakness, numbness or tingling. EYES: The patient denies visual changes, redness or drainage. ENT: The patient denies earache, nasal drainage or sore throat. CARDIOVASCULAR: The patient denies chest pain, palpitation or diaphoresis. PULMONARY: The patient denies cough or shortness of breath. GASTROINTESTINAL: The patient denies nausea, vomiting, diarrhea or abdominal pain. ORTHOPEDIC: The patient complains of some pain, swelling around the right leg. Other systems in a 14-point review of systems are negative. PHYSICAL EXAMINATION: VITAL SIGNS: At this time include pulse 63, respiratory rate 15, blood pressure [facility] [address] [place] [address] CONSULTATION Name: GODFREY LEMUS Room #: 504-2 ADM IN M.R.#: [id number] Admission: 09/02/18 ������������������ Attend Phys: Chandler Ochoa MD Discharge: ������������������ Date of : 32 Report #: [id number] 120/54, temperature 97.6. GENERAL: This is a chronically ill-appearing male patient who appears to be in minimal distress. HEENT: Head normocephalic. Nose and throat clear. NECK: Supple. LUNGS: Clear. ABDOMEN: Soft. Bowel sounds present. HEART: Irregular without murmur. EXTREMITIES: Demonstrate moderate edema of the right thigh area. There are 3 separate incisions along the thigh along the lateral portion with surgical juan josé in place. There is moderate serous drainage, but no separation and certainly no evidence of infection, tunneling or evidence of abscess. CLINICAL IMPRESSION: 1. Surgical incisions to the right leg, status post intramedullary nail placement following femur fracture. 2. Chronic kidney disease requiring hemodialysis. 3. Type 2 diabetes mellitus. 4. History of atrial fibrillation. 5. Hyperlipidemia. 6. Hypertension. 7. Peripheral vascular disease. RECOMMENDATIONS: At this point in time, I recommend silver alginate and a bordered foam type dressing to each of the incision sites. Activity per Orthopedics. We will recommend continuation of his current medications. He will need aggressive nutritional support to maintain optimal wound healing and maintain glycemic control. I appreciate being asked to see him in consultation. ��������������������������������������������� <ELECTRONICALLY SIGNED> ���������������������������������������� By: Suman Burdick MD ��������������������������������������������� 09/07/18 1023 1437 0025 Suman Burdick MD /nt
--- NOTE | 2018-09-07 12:48 | NUR ---
team meeting, recommendation : re team with encouragement to cont therapies, dc 09/17. 24hr cg if family able to provide 24 hr care, possible home for dc, will needs slide board and wc vs SNF.
[2018-09-07 19:35] VITALS: BP 144/65
--- NOTE | 2018-09-08 01:46 | NUR ---
PT ALERT AND ORIENTED X 4. UMANZOR PATENT DRAINING SMALL AMT CLEAR YELLOW URINE AT START OF SHIFT. PT C/O FEELING THE NEED TO URINATE AND DISCOMFORT. BLADDER SCANNED AT 2230 AND IT WAS 800 ML. UMANZOR CATHETER IRRIGATED WITH 30 ML STERILE SALINE WITH 60 ML CLEAR YELLOW RETURNS. SLOWLY DRAINED 800 ML URINE AFTER IRRIGATION. PT VERBALIZED RELIEF OF DISCOMFORT. PT APPEARS TO BE SLEEPING SINCE CATHETER TAKEN CARE OF. OTHERWISE PT DENIES PAIN. RIGHT HIP DRESSINGS X 3 C/D/I. PT INCONT STOOL X 2. BED ALARM ON FOR SAFETY. PT CHECKED ON HOURLY ROUNDS.
[2018-09-08 07:15] VITALS: BP 142/57
[2018-09-08 11:32] VITALS: BP 120/49
--- NOTE | 2018-09-08 14:00 | NUR ---
nursing staff passed on note from dr ghosh " pt would like to dc to [facility]"/dr. claros unable to leave message with daughter pat rt voice message is full.granddaughter here and confirmed plan would be skilled rehabu then home with , home health and daughter who is nurse"/granddaughter. referral to be send to [facility]. will cont following as needed for dc needs.
--- NOTE | 2018-09-08 14:23 | NUR ---
discharge planning: nabil sent a SKILLED REFERRAL to [facility]
--- NOTE | 2018-09-08 16:26 | NUR ---
ASSUMED CARE AT APPROX 0715. PATIENT A/O X4. VSS. C/O PAIN TO RLE AND LOWER BACK. MEDICATED WITH PAIN MEDICINE AND MUSCLE RELAXER PRIOR TO THERAPY. REPORTED RELIEF. UP X1-2 PERSONS SLIDEBOARD TRANSFER. UP WITH THERAPY, REPOSITIONED Q2. DRESSINGS TO RIGHT HIP C/D/I. UMANZOR TO DD. FALL PRECAUTIONS IN PLACE. RESTING IN BED, FAMILY AT BEDSIDE.
[2018-09-08 19:12] VITALS: BP 148/55
--- NOTE | 2018-09-09 01:07 | NUR ---
PT ALERT AND ORIENTED X 4. UMANZOR PATENT DRAINING CLEAR YELLOW URINE. DRESSINGS TO RIGHT HIP C/D/I. PT DENIES PAIN OR DISCOMFORT. BED ALARM ON FOR SAFETY. PT APPEARS TO BE SLEEPING ON HOURLY ROUNDS.
[2018-09-09 07:34] VITALS: BP 106/53
[2018-09-09 13:45] VITALS: BP 132/49
--- NOTE | 2018-09-09 14:43 | NUR ---
DISCHARGE PLANNING. UPDATED CLINICAL INFORMATION FAXED TO [facility] ADMISSIONS. POST ACUTE CARE RECOMMENDED AT DISCHARGE. DISCHARGE ANTICIPATED FOR 09/17. WILL FACILITATE DISCHARGE AT THAT TIME ONCE DISCHARGE ORDERS COMPLETED. UNIT CM AWARE. FOLLOWING TO ASSIST.
--- NOTE | 2018-09-09 16:00 | NUR ---
daughter florian called cm rt dc planning, sorry talk so long to get back with you. cm tried to discuss dcp, " you do not have to say he is going to [facility] then plan is to get him back home with mom and have nurses in family to assist at home"/daughter florian.
[2018-09-09 21:03] VITALS: BP 146/58
--- NOTE | 2018-09-09 21:15 | NUR ---
ASSUMED CARE AT APPROX 0715. PATIENT A/O X4. BP LOW, CHECK VIEWER NOTIFIED, [facility] HELD FOR LOW BP. PATIENT STARTED ON FLOMAX, PLAN IS TO DC UMANZOR CATH ON THURSDAY AFTER A FEW DAYS OF MEDICATION, R/T SCROTAL EDEMA AND URINE RETENTION. UMANZOR SECURED, TO DD, DRAINING CLEAR, LIGHT YELLOW URINE. FLUIDS ENCOUAGED. PATIENT C/O CONSITPATION. BOWEL AIDS ADMINISTERED, REPORTED RELIEF BY NOON, REFUSED ONETIME ORDER OF MAG CITRATE. PATIENT HAD ONE LARGE AND SEVERAL SMALL TO MODERATE BM'S THIS SHIFT. DRESSING TO R HIP C/D/I. PATIENT TURNED Q2. DATA ABSTRACTOR ASSESSED PATIENT'S BOTTOM, OPEN AREAS NOTED, PATIENT EDUCATED AND TURN SCHEDULE REINFORCED, OFFLOADED WITH REPOSITIONING WHEN UP IN CHAIR. BARRIER CREAM APPLIED. FALL PRECAUTIONS IN PLACE.
--- NOTE | 2018-09-10 02:00 | NUR ---
PATIENT TURNING SELF TO STAY OFF SACRUM, SMEAR OF STOOL NOW LAXATIVES GIVEN AT HS WERE WELCOMED BY PATIENT. PREPARATION H, WITCH SAFIA, AND MOISTURE BARRIER TO TALHA-RECTAL AREA FOR COMFORT AND TO PREVENT FURTHER BREAKDOWN.
[2018-09-10 05:32] LABS: HEMATOCRIT 27.7 % (42.0-52.0); HEMOGLOBIN 9.4 gm/dL (14.0-18.0); MCH 36.7 pg (26.0-34.0); MCHC 34.1 g/dL (28.0-37.0); MCV 107.9 fL (80.0-100.0); PLATELET COUNT 246 thou/uL (150-400); RBC 2.57 mil/uL (4.50-6.00); RDW 14.4 % (10.5-14.5); WBC 8.9 thou/uL (4.0-11.0)
[2018-09-10 05:45] LABS: ALBUMIN 2.5 g/dL (3.4-5.0); CALCIUM 7.9 mg/dL (8.5-10.1); CREATININE 2.3 mg/dL (0.7-1.3); PHOSPHORUS 4.6 mg/dL (2.5-4.9)
[2018-09-10 05:57] LABS: POTASSIUM 6.2 mmol/L (3.5-5.1)
[2018-09-10 07:40] VITALS: BP 150/47
[2018-09-10 07:47] LABS: ABSOLUTE NEUTROPHILS 7.7 thou/uL (1.4-8.2); MYELOCYTES 1 %
[2018-09-10 07:49] LABS: ANISOCYTOSIS 1+; MACROCYTES 1+; POIKILOCYTOSIS SLIGHT
--- NOTE | 2018-09-10 12:14 | NUR ---
Nutrition followup: pt eating well and family continues to assist with meal ordering. Current issue with hyperkalemia, kayexelate given. On carb controlled diet and noted still receiving ensure, Changed to nepro. Pt familiar with renal diet from being on dialysis over a year ago. Wound care follows for right hip incision site, open areas on bottom. BG improved 92-145. Would recommend consider adding renal diet restrictions. Stable weights prior to admit. No new weight since 09/02. Continue as low risk.
--- NOTE | 2018-09-10 12:18 | NUR ---
REC consider adding renal restrictions if hyperkalemia persists. RD changing supplement order to Mark
--- NOTE | 2018-09-10 15:31 | NUR ---
ASSUMED CARE AT APPROX 0715. PATIENT A/O X4. RECEIVED NIGHT NURSE REPORT THAT K 6.2 THIS AM. KAYEXEATE GIVEN. PT HAD BM BUT NOT ABLE TO GET IT OUT. BISACODYL SUPPOSITORY GIVE AND ASSISTED WITH ANNUAL DIGITAL REMOVED. HAD LARGE SOFT BM AND LOOSE STOOL AFTER THAT. PT C/O PAIN ON RIGHT HIP, BACK AND SCROTUM. PRN HYDROCODONE AND TIAZIDINE GIVEN. MORNING MEDS GIVEN. HAD LITTLE COUGH, PRN LOZENGE GIVE, FEELS BETTER NOW. OFFERED SUPPORTIVE CARE, ENCOURAGED PT TO VOICE HIS NEEDS. VOLATERENE GEL GIVEN ORDERED. DRESSINGS ON RIGHT HIP INTACT, HAS REDNESS DRY ON RIGHT UPPER HIP. UMANZOR CATH INTACT HAD 650CC YELLOW URINE OUT THIS AM. CONTINUE WITH THERAPY. TURNED Q2. WOUND CARE GIVEN ORDERED. PATIENT EDUCATED AND TURN SCHEDULE REINFORCED, OFFLOADED WITH REPOSITIONING WHEN UP IN CHAIR. BARRIER CREAM APPLIED. FALL PRECAUTIONS IN PLACE. CALL LIGHT WITHIN REACH. FAMILY AT BEDSIDE. DAUGHTER REQUESTS FOR BULKING AGENT. OBTAINED ORDER FOR METAMUCIL AND CHANGE MOM TO PRN. WILL CONTINUE TO MONITOR.
--- NOTE | 2018-09-10 16:02 | NUR ---
WOUND CARE FOLLOW UP; ROUNDING WITH DR WEST AND MASOUD OPERATIONS MANAGER/COORDINATOR. THE RIGHT HIP WOUNDS HAVE LESS DRAINAGE AT THIS TIME. THE PATIENT HAS AN AREA TO THE COCCYX, AND BILATERAL BUTTOCKS CONSISTANT WITH FRICTION SHEARING. RECOMMENDATION; ADD BARRIEWR CREAM TO BUTTOCKS DAILY. DISCUSSSED WITH LA
[2018-09-10 21:08] VITALS: BP 141/48
--- NOTE | 2018-09-11 02:49 | NUR ---
PATIENT ALERT AND ORIENTED X4. REMAINED IN BED THROUGHOUT THE NIGHT. ARTEMIO WARNING, PATIENT TO CENTER OF UNIT. TOLERATED WELL. C/O PAIN AND GIVEN TWO VICODIN WITH GOOD RESULTS. BS 127 AT 2100. COOPERATIVE WITH CARE. UMANZOR TO D/D WITH CLEAR LIGHT LENA URINE. DRESSING TO RIGHT HIP AND THIGH DRY AND INTACT. THIS NURSE HELD SUPPOSITORY, DOCUSATE SODIUM AND PSYLLIUM TONIGHT PATIENT HAD TWO LARGE BM'S DURING THE DAY. PATIENT RESTING QUIETLY. WILL MONITOR.
[2018-09-11 05:59] LABS: ALBUMIN 2.7 g/dL (3.4-5.0); CALCIUM 8.1 mg/dL (8.5-10.1); CREATININE 2.2 mg/dL (0.7-1.3); PHOSPHORUS 4.9 mg/dL (2.5-4.9); POTASSIUM 5.2 mmol/L (3.5-5.1)
[2018-09-11 08:52] VITALS: BP 147/48
--- NOTE | 2018-09-11 16:14 | NUR ---
PT REPORTS HE WAS ON ALLOPURINOL 100MG BID. NOTIFIED DR. HACKETT WHO CAME TO SEE PT. OBTAINED VERBAL ORDER TO CHANGE ACHS TO DAILY SINCE BS HAS BEEN STABLE. DR. HACKETT PUT ORDER TO D/C TODAY. PT REQUESTS HE PREPER TO REMOVE TOMORROW'S MORNING SO HE CAN HAVE A GOOD REST TONIGHT. DR. HACKETT OK WITH IT. SHIFT NOTE: ASSUMED CARE AT APPROX 0715. PATIENT A/O X4. REPORT SLEPT GOOD. K 5.2 TODAY. VOLATERENE GEL GIVEN ORDERED. DRESSINGS ON RIGHT HIP INTACT, HAS REDNESS DRY ON RIGHT UPPER HIP. WOUND CARE GIVEN ORDERED AT COCCYX, REDNESS AND SWELLING ON SCROTUM. BARRIER CREAM AND SILVADENE APPLIED. TURNS Q2 WITH CUEING. UMANZOR CATH INTACT HAD 1045CC YELLOW URINE OUT UNTIL NOW. HAD PRN PAIN MED EARLIER, DENIES NEED FOR MED SINCE THIS AM. HE SAID IT IS DOING BETTER. TRANSFERING MORE EASILY. CONTINUE WITH THERAPY. OFFERED SUPPORTIVE CARE. VSS, LABS REVIEWED, MEDS GIVEN. FALL PRECAUTIONS IN PLACE. CALL LIGHT WITHIN REACH. FAMILY AT BEDSIDE. WILL CONTINUE TO MONITOR.
[2018-09-11 20:02] VITALS: BP 152/49
--- NOTE | 2018-09-12 03:00 | NUR ---
METAMUCIL INITIATED, TWICE UP TO BSC WITH SLIDING BOARD FOR BM. TURNED TO SIDE WITH SILVADENE/MOISTURE BARRIER APPLIED. PAIN MED PER REQUEST. ICEBAG TO RIGHT HIP. AWARE OF PLAN TO REMOVE UMANZOR THIS MORNING
--- NOTE | 2018-09-12 05:52 | NUR ---
UMANZOR REMOVED AT 529, VOIDING 200CC YELLOW AT THIS TIME
[2018-09-12 07:30] VITALS: BP 146/70
--- NOTE | 2018-09-12 18:25 | NUR ---
ASSUMED CARE AT APPROX 0715. PATIENT A/O X4. C/O RIGHT HIP & LOWER BACK PAIN. MEDICATED PRN PER ORDERS, EDUCATED ON CONSTIPATION AND NARCOTIC PAIN MEDS. ADMINISTERED MIRALAX PER ORDERS, PATIENT AGREEABLE TO TAKE THIS DATE. UMANZOR REMOVED PRIOR TO START OF SHIFT, PATIENT VOIDING WELL, CLEAR YELLOW URINE OUTPUT IN URINALS AT BEDSIDE. PATIENT INCONTINENT X1 THIS SHIFT DURING NAP. DRESSING TO HIP CHANGED, INCISIONS WELL APPROXIMATED, C/D/I. PATIENT TURNS SELF Q2 HOURS. SILVADENE CREAM APPLIED TO BUTTOCKS. FALL PRECAUTIONS IN PLACE. PATIENT CALLS FOR ASSISTANCE APPROPRIATELY. ROUNDED ON HOURLY. WILL CONTINUE TO MONITOR.
--- NOTE | 2018-09-12 21:00 | NUR ---
PATIENT FEELING CONSTIPATED AT START OF SHIFT. SUPPOSITORY BY REQUEST, STOOL FELT IN RECTAL VAULT, MEDIUM LARGE FORMED STOOL APPROX 45 MINUTES LATER. DESCRIBED BY PATIENT VERY HARD AND BURNING ON THE WAY OUT. LAXATIVES GIVEN BUT DECLINED METAMUCIL, LACTULOSE OFFERED AND GIVEN INSTEAD, HE DOESN'T THINK HE HAS HAD LACULOSE BEFORE, HE WILL EVALUATE IF IT MAKES HIS BM SOFT ENOUGH TO TOLERATE. MEANWHILE, HE IS VOIDING WELL 12 HOURS AFTER UMANZOR REMOVED, RIGHT HIP DRESSINGS ARE DRY AND INTACT, SCROTAL SWELLING IS DECREASED, SACRAL WOUNDS ARE HEALING PATIENT RELIGIOUSLY TURNS TO HIS SIDES, AND HYDROCODONE IS EFFECTIVE FOR PAIN CONTROL,
[2018-09-13 06:46] LABS: CALCIUM 8.7 mg/dL (8.5-10.1); CREATININE 2.2 mg/dL (0.7-1.3); POTASSIUM 5.1 mmol/L (3.5-5.1)
[2018-09-13 07:15] VITALS: BP 161/58
[2018-09-13 09:20] VITALS: BP 117/56
--- NOTE | 2018-09-13 10:44 | PLAN ---
[facility] [place] [address] REHAB UNIT PLAN OF CARE Name: GODFREY LEMUS Room #: 504-2 ADM IN M.R.#: [id number] Admission: 09/02/18 ������������������ Attend Phys: Chandler Ochoa MD Discharge: ������������������ Date of : 32 Report #: [id number] THIS REPORT FOR: //name// CC: Chandler Campo DATE OF SERVICE: 09/04/2018 PROGRESS NOTE AND OVERALL PLAN OF CARE SUBJECTIVE: The patient is seen back earlier this a.m. Last recorded temperature is 36.8, pulse is 66, respirations 20, and blood pressure is 136/36. He had the hip dressing changed by nursing early this a.m. as there was noted to be some serosanguineous drainage. He has been working in therapies with max assist sit to supine; transfers, bed to wheelchair have been max assist utilizing the sliding board. In occupational therapy, lower body dressing is max assist, upper body is set up. ASSESSMENT: 1. Right subtrochanteric femur fracture, status post nailing on 08/31/2018, toe-touch weightbearing. 2. Acute renal insufficiency superimposed on chronic kidney disease. 3. Hyperkalemia. 4. Premorbid peripheral neuropathy. 5. Chronic pain syndrome. 6. Type 2 diabetes mellitus. 7. Hypertension. 8. Hyperlipidemia. PLAN: The overall plan of care is based on the preadmission screen, post-admission physician evaluation and information garnered from therapy assessments. 1. Estimated length of stay is probably fairly long at 2-3 weeks. 2. Medical prognosis is reasonably good. 3. Anticipated interventions includes the interdisciplinary acute inpatient rehabilitation program with the goal of maximizing his functional independence, so that he can hopefully return back to his prior living situation. This includes PT, OT, rehab nursing assisting regarding medication management, skin care prophylaxis, bowel and bladder issues, and nursing education. Case management is involved as well as the [employer] consultant physicians and the rest of the interdisciplinary rehabilitation team. 4. Anticipated functional outcomes would be for him to become modified independent with basic mobility and transfers within his weightbearing precautions. Goal will be for him to be modified independent initially at the wheelchair level. 5. Discharge destination would be back to the home setting where he lives with [address] [address] REHAB UNIT PLAN OF CARE Name: GODFREY LEMUS Room #: 504-2 ADM IN ..#: [id number] Admission: 09/02/18 ������������������ Attend Phys: Chandler Ochoa MD Discharge: ������������������ Date of : 32 Report #: [id number] his spouse. He does have 6 children. He is likely going to need some increased assistance once ready to return back to the home setting. 6. Expected therapy by discipline includes PT and OT 1-1/2 hours per day each five days a week throughout the duration of the acute inpatient rehabilitation stay. ��������������������������������������������� <ELECTRONICALLY SIGNED> ���������������������������������������� By: Chandler Ochoa MD ��������������������������������������������� 09/13/18 1044 [id number] Chandler Ochoa MD /CHELSY
--- NOTE | 2018-09-13 10:44 | H ---
[facility] [place] [address] HISTORY AND PHYSICAL Name: GODFREY LEMUS Room #: 504-2 ADM IN M.R.#: [id number] Admission: 09/02/18 ������������������ Attend Phys: Chandler Ochoa MD Discharge: ������������������ Date of : 32 Report #: [id number] THIS REPORT FOR: //name// CC: Chandler Campo DATE OF SERVICE: 09/02/2018 HISTORY AND PHYSICAL AND POST-ADMISSION PHYSICIAN EVALUATION HISTORY OF PRESENT ILLNESS: The patient is an 88-year-old white male who was originally admitted to [facility] on 08/29/2018 when he was carrying some boxes while moving into a new apartment, lost balance and landed on his right hip. Imaging confirmed right femur fracture and he underwent nailing by Orthopedics, Dr. Riojas. He is limited to toe touch weight bearing. He had potassium on admission noted to be 6.2, was seen by Nephrology. Creatinine was elevated at 2.9. He had been on hemodialysis in the past, but has been off for approximately a year. He is noted to have acute on chronic renal insufficiency, has premorbid peripheral neuropathy, chronic pain syndrome. He has been admitted now for acute in-hospital inpatient rehabilitation. PAST MEDICAL HISTORY: As noted above. He does have the history of atrial fibrillation, diabetes mellitus, hypertension and dialysis for 6 months in the past. PAST SURGICAL HISTORY: Includes TURP, left foot surgery x 3, cataract, hernia repair. MEDICATIONS: Please see the full medication listing. This includes vitamins, herbals, and supplements per report. ALLERGIES: MORPHINE AND VANCOMYCIN. FAMILY HISTORY: Noncontributory. SOCIAL HISTORY: Lives with spouse. They just moved into a new independent living apartment, no steps, has elevator. He did not utilize assistive devices, but does have a walker at home. He drives, he was independent with ADLs and IADLs. His has physical and memory deficits and will not be able to assist him at discharge. 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 He has 6 children. One of his granddaughters is a speech therapist here at [facility]. REVIEW OF SYSTEMS: No current complaints of chest pain, shortness of breath, abdominal discomfort. No complaints of fever or chills. No bowel or bladder [facility] [address] [place] [address] HISTORY AND PHYSICAL Name: GODFREY LEMUS Room #: 504-2 ADM IN M.R.#: [id number] Admission: 09/02/18 ������������������ Attend Phys: Chandler Ochoa MD Discharge: ������������������ Date of : 32 Report #: [id number] changes. Some hip discomfort as expected, but otherwise no real extremity complaints at this time. PHYSICAL EXAMINATION: GENERAL: He is an 88-year-old white male, in no obvious distress. The patient is alert. VITAL SIGNS: Last recorded temperature 98, pulse 68, respirations 18, blood pressure 140/62. HEENT: Appeared to be benign. Cranial nerves grossly intact. Facies are symmetric. CHEST: Sounded clear to auscultation. CARDIOVASCULAR: Regular rate and rhythm. ABDOMEN: Bowel sounds positive, nontender. GENITOURINARY AND RECTAL: Deferred. EXTREMITIES: He has functional range of motion of both upper extremities without obvious focal weakness. DTRs are trace to 1. In his lower extremities, his right femur incision is dressed. Dressing appears dry. There is no calf swelling, he can dorsiflex the right ankle. Left lower extremity functional range of motion, strength is a grade 4-/5. Functionally, he has been working in therapies. He is actually toe touch weightbearing on that right lower extremity, sit to stand, has been max assist. He has been unable to lift the right foot off the floor while standing. ASSESSMENT: 1. Right subtrochanteric femur fracture, status post nailing 08/31/2018, is actually toe-touch weightbearing. 2. Hyperkalemia. 3. Acute renal insufficiency superimposed on chronic kidney disease. 4. Premorbid peripheral neuropathy. 5. Chronic pain syndrome. 6. Type 2 diabetes mellitus. 7. Hypertension. 8. Hyperlipidemia. PLAN: The patient is admitted for acute in-hospital inpatient rehabilitation. From a postadmission physician evaluation perspective, there are no relevant changes since the preadmission screening. Please see the above review of prior and current medical and functional conditions and comorbidities. Please see the previous and current functional status. As far as the risk of complications, the patient has multiple medical comorbidities as noted above. Initial plan of care involves the interdisciplinary acute inpatient rehabilitation program with goal of maximizing the patient's functional independence, so he can hopefully return back to her prior living situation. Measurable functional goals would be for the patient to become modified independent with transfers, mobility, ADLs, so that he can hopefully return back to his prior living situation. Prognosis is reasonably good with estimated length of stay probably fairly long at 2-3 [facility] [address] [place] [address] HISTORY AND PHYSICAL Name: GODFREY LEMUS Room #: 504-2 ADM IN M.R.#: [id number] Admission: 09/02/18 ������������������ Attend Phys: Chandler Ochoa MD Discharge: ������������������ Date of : 32 Report #: [id number] weeks pending progress. Potential barriers would include his above noted medical comorbidities and his decreased functional status. The patient meets diagnostic criteria for an acute in-hospital inpatient rehabilitation stay. He meets the medical necessity criteria and we will have the multiple business intelligence consultant physicians continue to follow. He does have the tolerance for therapies and has appropriate discharge goals back to the home setting. We will need to see how he further progresses within his weightbearing precautions and work with him in the interdisciplinary acute inpatient rehabilitation program. ��������������������������������������������� <ELECTRONICALLY SIGNED> ���������������������������������������� By: Chandler Ochoa MD ��������������������������������������������� 09/13/18 1044 [id number] Chandler Ochoa MD /[facility]
[2018-09-13 11:27] VITALS: BP 144/45
--- NOTE | 2018-09-13 14:03 | NUR ---
ASSUMED CARE AT APPROX 0715. PATIENT A/O X4. REPORTS SLEPT GOOD. C/O RIGHT HIP & LOWER BACK PAIN. PRN HYDROCODONE GIVEN AND VOLTARENE GEL APPLIED. HX OF CONSTIPATION. ADMINISTERED MIRALAX PER ORDERS PATIENT VOIDING WELL ASSISTED TO BATHROOM, CLEAR YELLOW URINE OUTPUT IN URINALS AT BEDSIDE. DRESSING TO HIP CHANGED, INCISIONS WELL APPROXIMATED, C/D/I. PATIENT TURNS SELF Q2 HOURS. SILVADENE CREAM APPLIED TO BUTTOCKS. B/P WAS 161/58, GAVE HYPERTENSIVE. PT FELT DIZZY EARLIER THIS AM AFTER TOOK MORNING MEDS. B/P WAS 117/56, PT WAS SCARRED, OFFERED SUPPORTIVE AND ENCOURAGEMENT. PT DOES BETTER NOW B/P 144/45. REASSESMENT PER CHART. DENIES PAIN, N/V, DIZZINESS NOW. PT HAS BEEN UP IN RECLINER, WORKING WELL WITH PT/OT/ST TODAY. FALL PRECAUTIONS IN PLACE. PATIENT CALLS FOR ASSISTANCE APPROPRIATELY. ROUNDED ON HOURLY. FAMILY IS AT BEDSIDE. WILL CONTINUE TO MONITOR.
[2018-09-13 19:12] VITALS: BP 183/56
--- NOTE | 2018-09-14 03:17 | NUR ---
ASSUMED CARE AT 1900, ASSESSMENT COMPLETED. PT HAD THREE SOFT/LOOSE BM'S THAT CAME ON SUDDENLY AND HE REQUESTED THE BEDPAN; PT REPORTED FEELING LESS BLOATED AND CRAMPY AFTER HAVING THE STOOL. C/O RIGHT HIP AND LEG PAIN R/T FREQ ROLLING; GIVEN HS DOSE OF 2 TABS NORCO. DENIED NAUSEA OR SOB. BLADDER SCAN SHOWED <999 ML; STRAIGHT CATH RELEASED 1100 ML CLEAR YELLOW URINE; WILL BLADDER SCAN PT AGAIN THIS AM. SLIGHT RECTAL BLEEDING WITH BM'S AND NOTED EXCORIATED COCCYX AREA, APPLIED Z-GUARD AND SILVADENE CREAM. NO OTHER CONCERNS, WILL CONTINUE TO MONITOR.
[2018-09-14 07:36] VITALS: BP 175/58
[2018-09-14 08:00] VITALS: BP 166/61
--- NOTE | 2018-09-14 08:04 | NUR ---
ASSUME PT CARE AT 0700. RECEIVED THE REPORT FROM NIGHT NURSE THAT BS WAS 600CC AT 6AM. PT REFUSED TO BE STRAIGHT CATH AND TRY TO GO SOME MORE ON HIS OWN. BS 69. HELD GLIPIZIDE AT 0800. GAVE ORANGE JUICE, RECHECKED BS 102 NOW. B/P 175/58 HR 77. GIVE NORVASC 2.5MG DAILY ORDER. B/P 166/61 NOW. HIS OWN DOCTOR CAME TO SEE PT THIS AM AND AWARE OF URINARY RETENSION AND SUGGEST HE SHOULD BE ON FLOMAX BID. OT GAVE SPONGE BATH. PT IS EATING BREAKFAST AT THIS MOMENT. REPORT PAIN RIGHT KNEE AND HIP 10/27, DENIES NEED FOR PAIN MED AT THIS MOMENT. GIVE MUSCLE RELAX AND ALL MORNING MEDS AT THIS MOMENT. PT HAD LARGE BM LAST NIGHT. HIS GOAL TO URINATE, STAND AND CONTINUE HIS THERAPY. OFFERED SUPPORTIVE CARE. ENCOURAGED PT TO VOICE HIS NEEDS. FALL PRECAUTION IN PLACE. REASSESSMENT PER CHART. DRESSING ON RIGHT HIP C/D/I. BUTTOCK WOUND APPLY CREAM AND SILVADENE ORDER. WILL CONTINUE TO MONITOR.
--- NOTE | 2018-09-14 13:28 | NUR ---
team meeting, recommendation: skilled [facility] on , cont with nwb and ortho.
[2018-09-14 20:28] VITALS: BP 132/45
--- NOTE | 2018-09-15 02:49 | NUR ---
PT ALERT AND ORIENTED X 4. RIGHT HIP AND LEG DRESSINGS C/D/I. UMANZOR PATENT DRAINING ADEQUATE AMTS CLEAR YELLOW URINE. PT DENIES PAIN OR DISCOMFORT. PT REFUSED DULCOLAX SUPPOSITORY AND SILVADENE CREAM AT HS. STATED HE DIDN'T NEED THEM. PT REPOSITIONS SELF IN BED. BED ALARM ON FOR SAFETY. PT APPEARS TO BE SLEEPING ON HOURLY ROUNDS.
[2018-09-15 07:15] VITALS: BP 152/48
--- NOTE | 2018-09-15 15:08 | NUR ---
Patient participated in community reintegration on 09/15/18 with PHYSICAL THERAPY. Refer to documentation by WILMA PHYSICAL THERAPIST.
--- NOTE | 2018-09-15 15:42 | NUR ---
ASSUMED CARE AT APPROX 0715. PATIENT A/O X4. VSS. C/O PAIN IN RLE AND LOWER BACK. MEDICATED FOR PAIN AVAILABLE. PATIENT EDUCATED ON BOWEL AID MEDICATIONS AND CONSTIPATION R/T NARCOTIC PAIN MEDS. PATIENT VERBALIZED TEACHING ACCURATELY, TOOK ALL SCHEDULED BOWEL AIDS. BM YESTERDAY. TURNS SELF IN BED Q2. RIGHT HIP DRESSINGS C/D/I, CHANGED THIS DATE, JEFFRY PRESENT, SKIN WELL APPROXIMATED. SILVADINE/BARRIER CREAM COMPOUND APPLIED TO BUTTOCKS. BLANCHABLE REDNESS NOTED, NO OPEN AREAS. PATIENT PARTICIPATED IN THERAPY. FALL PRECAUTIONS IN PLACE. RESTING IN BED. WILL CONTINUE TO MONITOR.
--- NOTE | 2018-09-15 15:42 | NUR ---
WOUND CARE FOLLOW UP; ROUNING WITH DR WEST AND MASOUD GMAT TUTOR. HIP STAPLE SITES INTACT AND STABLE, NO DRAINAGE. BUTTOCKS WOUNDS IMPROVING. CONTINUE PLAN OF CARE. DISCUSSED WITH RN
[2018-09-15 20:00] VITALS: BP 182/48
--- NOTE | 2018-09-16 03:20 | NUR ---
PT ALERT AND ORIENTED X 4. UMANZOR PATENT DRAINING ADEQUATE AMTS CLEAR YELLOW URINE. RIGHT HIP AND LEG DRESSINGS C/D/I. PT C/O PAIN IN RIGHT HIP. HYDROCODONE GIVEN AT HS. BED ALARM ON FOR SAFETY. PT CHECKED ON HOURLY ROUNDS.
[2018-09-16 05:46] LABS: ABSOLUTE NEUTROPHILS 7.2 thou/uL (1.4-8.2); BASOPHILS 0.7 % (0.0-2.0); EOSINOPHILS 0.8 % (0.0-3.0); HEMATOCRIT 25.9 % (42.0-52.0); HEMOGLOBIN 8.9 gm/dL (14.0-18.0); LYMPHOCYTES 12.6 % (24.0-44.0); MCH 36.8 pg (26.0-34.0); MCHC 34.3 g/dL (28.0-37.0); MCV 107.1 fL (80.0-100.0); MONOCYTES 6.1 % (1.0-8.0); PLATELET COUNT 252 thou/uL (150-400); POLYS 79.8 % (36.0-66.0); RBC 2.41 mil/uL (4.50-6.00); RDW 14.8 % (10.5-14.5)
[2018-09-16 06:06] LABS: ALBUMIN 2.5 g/dL (3.4-5.0); CALCIUM 8.4 mg/dL (8.5-10.1); CREATININE 2.3 mg/dL (0.7-1.3); MAGNESIUM 2.4 mg/dL (1.8-2.4); PHOSPHORUS 4.6 mg/dL (2.5-4.9)
[2018-09-16 06:07] LABS: POTASSIUM 5.5 mmol/L (3.5-5.1)
[2018-09-16 10:01] VITALS: BP 176/51
--- NOTE | 2018-09-16 12:59 | NUR ---
phone call from pt granddaughter wanting to know what time going to be dc tomorrow, education on depends on dc orders, and transportation. " son is going to come up for dc if someone could call him and est time, possible"/granddaughter uziel. discussed between 11-1300 "thank you we do not know this process"/granddaughter. chart copy has been requested. bedside nurse to call report to robinson carrasco [phone]. dc orders to be faxed to facility day of dc 09/17/18. checked with physical therapy and team agree pt can be transported by in wheel chair van.
[2018-09-16 19:44] VITALS: BP 136/43
--- NOTE | 2018-09-16 20:47 | NUR ---
ASSUMED CARE AT APPROX 0715. PATIENT A/O X4. VSS. REPORTS SLEPT GOOD LAST NIGHT. C/O PAIN IN RLE, ESPECIALLY ON RIGHT GROIN. PHYSICAL THERAPIST WHO WORKED WITH PT COUPLE TIME REPORT PT HAS QUAD THIGHNESS PAIN EACH TIME SHE WORKED WITH PT. NOTIFIED DR. SAMAYOA AND OBTAINED LUMBAR SPINE XRAY. WILL ASK DR. SAMAYOA FOLLOW UP WITH XRAY RESULT TOMORROW. PAIN MEDICATED PATIENT EDUCATED ON BOWEL AID MEDICATIONS AND CONSTIPATION R/T NARCOTIC PAIN MEDS. PATIENT VERBALIZED TEACHING ACCURATELY, TOOK ALL SCHEDULED BOWEL AIDS. HAD LARGE SOFT BM TODAY. TURNS SELF IN BED Q2.CALLED ORTHO AND OBTAINED ORDER TO REMOVE JEFFRY TODAY. JEFFRY REMOVED AND APPLIED STERI STRIPS. SILVADINE BARRIER CREAM COMPOUND APPLIED TO BUTTOCKS. BLANCHABLE REDNESS NOTED GETTING BETTER. NO OPEN AREAS. PATIENT PARTICIPATED IN THERAPY. FALL PRECAUTIONS IN PLACE. PT CALLS APPROPRIATE. PT WILL BE DISCHARGE TOMORROW TO [facility] AROUND 11AM-1330. UMANZOR CATH INTACT WITH 1330 ABMER COLOR. PT IS GETTING UP WITH MOD ASSIST PIVOT WITH A WALKER OR MIN ASSSIST WITH SLIDE BOARD. TT ON RIGHT LE ONLY. PT AND FAMILY EXPRESSED THEIR APPRECIATE GOOD CARE HE HAS RECEIVED AT [facility] AND AWARE OF HIS DISCHARGE TOMORROW. GAVE REPORT TO NIGHT NURSE TO CONTINUE TO [facility].
--- NOTE | 2018-09-16 23:24 | NUR ---
PT ASSESSMENT COMPLETED AND VSS. MEDS GIVEN ORDERED AND WELL TOLERATED. FALL PRECAUTIONS IN PLACE. DSGS ON R HIP DRY AND INTACT X 3. PT STATES THAT HE IS FEELING MUCH BETTER AND STRONGER. PT USED SLIDE BOARD WITH 2 ASST TONIGHT WITH BM. ASST WITH REPOSITION FOR COMFORT. PT SLEEPING ON HIS SIDE. UMANZOR DRAINING YELLOW URINE. WILL CONTINUE TO MONITOR FREQUENTLY.
[2018-09-17] MEDS ORDERED: FLOMAX0.4 MG PO (08:13)
[2018-09-17] MEDS ORDERED: VOLTAREN100 GM TOP (08:13)
[2018-09-17] MEDS ORDERED: SENNA-TIME S T1 EACH PO (08:13)
[2018-09-17] MEDS ORDERED: VITAMIN B-12500 MCG PO (08:13)
[2018-09-17] MEDS ORDERED: MIRALAX17 GM PO (08:13)
[2018-09-17] MEDS ORDERED: GLUCOTROL5 MG PO (08:13)
[2018-09-17] MEDS ORDERED: NORVASC2.5 MG PO (08:13)
[2018-09-17] MEDS ORDERED: CEPACOL SORE T1 EAC8 PO (08:13)
[2018-09-17] MEDS ORDERED: SSD CREAM 1% 5050 GM TOP (08:13)
[2018-09-17] MEDS ORDERED: NEURONTIN 300300 M1 PO (08:13)
[2018-09-17] MEDS ORDERED: DULCOLAX5 MG PO (08:13)
[2018-09-17] MEDS ORDERED: TUCKS1 EAC1 TOP (08:13)
[2018-09-17] MEDS ORDERED: ZANAFLEX4 MG PO ×4 (08:13→08:32)
[2018-09-17 09:02] VITALS: BP 139/46
--- NOTE | 2018-09-17 09:42 | NUR ---
ASSUMED CARE AT 0700. PATIENT IS ALERT AND ORIENTED X4. PATIENT MCLEAN'S, SALES REPRESENTATIVE JEWELRY ARE EQUAL. PATIENT HAS BORDERS OVER STERISTRIPS. PATIENT IS NON-WEIGHT BEARING ON HIS RIGHT LEG. PATIENT LUNGS ARE CLEAR. ABD IS SOFT WITH BSX4. PATIENT IS STAND PIVOT TRANSFER TO [facility]. PATIENT HAS UMANZOR CATHETER TO , DRAINING LENA COLORED URINE. FALL AND SAFETY PROTOCOLS IN PLACE. DENIES ANY PAIN AT THIS TIME. CONTINUES TO PROGRESS TOWARDS D/C GOALS. PLAN D/C TO SKILLED FACILITY BETWEEN 11-1PM VIA W/C VAN. WILL CONTINUE TO MONITER.
[2018-09-17] MEDS ORDERED: LITE COAT ASPI325 MG PO (10:12)
--- NOTE | 2018-09-17 12:51 | NUR ---
PATIENT D/C'D TO [facility] VIA W/C. PATIENT SON HERE TO TAKE BAGS. PAPERWORK GIVEN TO W/C LESA MULTANI.
--- NOTE | 2018-09-17 13:24 | NUR ---
carlos from admit at [facility] called left voice message stated " need to verify that his insurance and not medicare replacement because is going to be coming soon and need to make she its just medicare"/carlos. called back [phone], left message with carlos and wheel chair daniel has already picked up pt for dc to snf, pt son in room and was going to follow him over to [facility] snf.
== END 2018-09-17 12:54 | DRG 536 ==
PROVIDERS: Hospitalist; Internal Medicine Nephrology; Nurse Practitioner; Nurse Practitioner Family; ADMIT Physical Medicine & Rehabilitation
DX: S72.21XA Displaced subtrochanteric fracture of right femur, initial encounter for closed fracture (principal); D62 Acute posthemorrhagic anemia; N17.9 Acute kidney failure, unspecified; E44.0 Moderate protein-calorie malnutrition; N18.4 Chronic kidney disease, stage 4 (severe); W18.39XA Other fall on same level, initial encounter; E11.42 Type 2 diabetes mellitus with diabetic polyneuropathy; G89.4 Chronic pain syndrome; I12.9 Hypertensive chronic kidney disease with stage 1 through stage 4 chronic kidney disease, or unspecified chronic kidney disease; E78.5 Hyperlipidemia, unspecified; E87.5 Hyperkalemia; R41.9 Unspecified symptoms and signs involving cognitive functions and awareness; F41.9 Anxiety disorder, unspecified; E11.51 Type 2 diabetes mellitus with diabetic peripheral angiopathy without gangrene; I48.91 Unspecified atrial fibrillation; K59.00 Constipation, unspecified; M10.9 Gout, unspecified; R33.9 Retention of urine, unspecified; Z98.49 Cataract extraction status, unspecified eye; Y93.89 Activity, other specified; Y92.89 Other specified places as the place of occurrence of the external cause; Y99.8 Other external cause status; Z79.899 Other long term (current) drug therapy; Z88.6 Allergy status to analgesic agent
CPT/HCPCS: 10112

== ENCOUNTER 2019-12-21 08:27 | Inpatient (IN) | payer OTHER, BC ==
[~2019-12-21] VITALS: Ht 193 cm; Wt 107.5 kg
--- NOTE | ~2019-12-21 | HC ---
[facility] [place] [address] CONSULTATION Name: GODFREY LEMUS Room #: 217-P ADM IN M.R.#: [id number] Admission: 12/21/19 Attend Phys: Uzair Tran MD Discharge: Date of : 32 Report #: [id number] THIS REPORT FOR: cc: Myles Campo Donald L. DO Stephens, Thad A. MD ~ CC: Uzair Cornejo DATE OF SERVICE: 12/23/2019 WOUND CARE CONSULTATION PERSONAL PHYSICIAN: Myles Campo DO. CHIEF COMPLAINT: Multiple skin tears. HISTORY OF PRESENT ILLNESS: This is an 89-year-old white male who fell from a standing position 2 days ago and suffered a left hip fracture as well as an abrasion to his left elbow. The patient's daughter placed a dressing over the left elbow wound prior to coming to the hospital to be evaluated for hip fracture. The patient now is status post operative repair of the hip fracture by Dr. Locke. However after the patient came out of anesthesia, the patient was somewhat confused and agitated and suffered 2 more skin tears to his left dorsal hand and forearm. We have been asked to see the patient for these associated wounds. The patient denies any other associated wounds; however, states that approximately a year ago when he broke his right hip, he did unfortunately develop a small superficial gluteal decubitus ulcer according to the daughter. The patient once again denies any other associated ulcerations at this time. PAST MEDICAL HISTORY: Significant for diabetes, neuropathy, chronic kidney disease with a 1 year stent of hemodialysis, which he is now off of, degenerative disk disease, atrial fibrillation, hypertension, right hip fracture with nail repair, atrial fibrillation ablation in 2013, left upper extremity AV fistula. CURRENT MEDICATIONS: Multiple, I reviewed the patient's medication list. DRUG ALLERGIES: MORPHINE AND VANCOMYCIN. SOCIAL HISTORY: The patient has a remote history of smoking, drinks alcohol socially. Lives with his daughter. [address] [address] CONSULTATION Name: GODFREY LEMUS Room #: 217-P ADM IN M.R.#: [id number] Admission: 12/21/19 Attend Phys: Uzair Tran MD Discharge: Date of : 32 Report #: [id number] FAMILY HISTORY: Not pertinent to current medical condition. REVIEW OF SYSTEMS: CONSTITUTIONAL: The patient denies fevers or chills. NEUROLOGIC: The patient complains of mild generalized weakness, but no isolated weakness in arms or legs. EYES: No complaints. ENT: No complaints. CARDIAC: The patient denies chest pain, palpitations or peripheral edema. RESPIRATORY: The patient denies shortness of breath, cough or wheezes. GASTROINTESTINAL: The patient denies nausea, vomiting, abdominal pain. GENITOURINARY: The patient denies urgency or frequency. MUSCULOSKELETAL: The patient has mild pain in his left hip from the surgery site. SKIN: There are three skin tears to the left upper extremity with significant bruising to his right upper extremity, but no open wounds on the right. PHYSICAL EXAMINATION: VITAL SIGNS: Temperature 36.4, pulse 83, respirations 18, BP 133/48. GENERAL: This is an alert and oriented x 3, pleasant white male who is in absolutely no distress. HEENT: Normocephalic, atraumatic. Mucous membranes are slightly dry. Pupils are round. Sclerae white. NECK: Supple, nontender. LUNGS: Clear. HEART: Regular. ABDOMEN: Soft, nontender. EXTREMITIES: The patient has tenderness on bilateral lower extremities with no significant edema. Bilateral heels are intact and nontender. Evaluation of right upper extremity reveals significant bruising from the wrist to the forearm without open ulcerations or wounds. On the left upper extremity, there is an open skin tear on the left dorsal hand which is clean and only had partial thickness. On the left dorsal forearm, there is a skin tear, which is clean and partial thickness. There is also a skin tear on the left elbow region, which is partial thickness and clean. Distal pulses otherwise intact in all extremities. NEUROLOGIC: Cranial nerves 2-12 grossly intact. Motor and sensory grossly intact. LABORATORY DATA: White count 12.7, hemoglobin 10.1, BUN 38, creatinine 2.3, albumin 3.1. IMPRESSION: 1. Multiple skin tears, left upper extremity without signs of infection. 2. Significant ecchymosis of the right upper extremity without open wounds. 3. Status post operative repair of left hip fracture. 4. Diabetes mellitus. [address] [address] CONSULTATION Name: GODFREY LEMUS Room #: 217-P ADM IN M.R.#: [id number] Admission: 12/21/19 Attend Phys: Uzair Tran MD Discharge: Date of : 32 Report #: [id number] 5. Protein-calorie malnutrition -- moderate albumin 3.1. 6. Generalized debility secondary to the recent hip fracture. PLAN: At this time, we will place foam dressings over all the skin tears to be changed every 1-2 days and p.r.n. The patient already has a ANDRE hose in place, which we will continue. I talked to the patient and the patient's daughter about having him checked for heel pain to make sure he do not develop any decubitus ulcers in the heel. The patient has a history of decubitus ulcers. So we will get him a low air loss pump for the bed as well as having turned every 2 hours. We will put the patient into protective boots while in bed. We will start Z-guard lotion to the buttock area for preventative measures given previous history of gluteal ulcer. We will make sure we maximize the patient's oral protein supplementation for healing. We will utilize physical and occupational therapy for strengthening. We will continue all other current medications. I appreciate ability to consult. We will continue to follow the patient. By: 1623 [id number] Fidencio White MD /izaiah
[~2019-12-21 08:27] MED LIST changes: +CEPACOL SORE T1 EAC8 PO; +HEPARIN SO5000 UNIT/ SUBQ; +LITE COAT ASPI325 MG PO; +NORVASC2.5 MG PO; +SENNA-TIME S T1 EACH PO; +SSD CREAM 1% 5050 GM TOP; +TUCKS1 EAC1 TOP; +VITAMIN B-12500 MCG PO; +VOLTAREN100 GM TOP
[2019-12-21 08:35] VITALS: BP 157/72
[2019-12-21 10:02] LABS: ABSOLUTE NEUTROPHILS 8.1 thou/uL (1.4-8.2); BASOPHILS 0.4 % (0.0-2.0); EOSINOPHILS 1.2 % (0.0-3.0); HEMATOCRIT 39.2 % (42.0-52.0); HEMOGLOBIN 13.3 gm/dL (14.0-18.0); LYMPHOCYTES 7.4 % (24.0-44.0); MCH 36.3 pg (26.0-34.0); MCV 106.9 fL (80.0-100.0); MONOCYTES 4.5 % (1.0-8.0); PLATELET COUNT 153 thou/uL (150-400); POLYS 86.5 % (36.0-66.0); RBC 3.67 mil/uL (4.50-6.00); RDW 14.3 % (10.5-14.5); WBC 9.3 thou/uL (4.0-11.0)
[2019-12-21 10:11] LABS: APTT 29.2 Seconds (24.5-32.8); INR 1.1; PROTIME 11.2 Seconds (9.3-11.4)
[2019-12-21 10:34] LABS: ALBUMIN 3.6 g/dL (3.4-5.0); ANION GAP 10 mmol/L (7-16); BUN 33 mg/dL (7-18); CALCIUM 8.5 mg/dL (8.5-10.1); CHLORIDE 106 mmol/L (98-107); CO2 24 mmol/L (21-32); CREATININE 2.2 mg/dL (0.7-1.3); GLUCOSE 129 mg/dL (74-106); MAGNESIUM 2.3 mg/dL (1.8-2.4); SGOT 29 U/L (15-37); SGPT 32 U/L (30-65); SODIUM 140 mmol/L (136-145); TOTAL BILIRUBIN 0.5 mg/dL (0.2-1.0); TOTAL PROTEIN 7.9 g/dL (6.4-8.2); TROPONIN-I <0.06 ng/mL (<0.06)
[2019-12-21 10:43] LABS: POTASSIUM 6.3 mmol/L (3.5-5.1)
[2019-12-21 11:19] VITALS: BP 165/78
[2019-12-21 17:14] VITALS: BP 182/82
--- NOTE | 2019-12-21 18:46 | NUR ---
PT ARRIVED TO UNIT FROM ER AT APPROX 1650 ACCOMPANIED BY LISETTE. PT ALERT AND ORIENTED. VSS- BP ELEVATED. PT IN PAIN FROM LEFT HIP. MANAGED WITH PO PAIN MEDS. PT BEDREST, SCHEDULED LEFT HIP SURGERY TOMORROW. FALL PRECAUTIONS IN PLACE. CONSENT SIGNED. ADMISSION COMPLETE. TELE STRIP PRINTED AND DOCUMENTED. O2 SATS WNL ON 2L O2. PT CURRENTLY UP IN BED EATING DINNER. DENIES CONCERNS/NEEDS. WILL CONT TO MONITOR. WILL PASS ON REPORT TO ASIM TOVAR.
[2019-12-21 19:14] LABS: CREATININE 2.2 mg/dL (0.7-1.3); MAGNESIUM 1.9 mg/dL (1.8-2.4); POTASSIUM 5.7 mmol/L (3.5-5.1)
[2019-12-21 20:00] VITALS: BP 150/67
[2019-12-21 23:04] LABS: URINE BILIRUBIN NEGATIVE (Negative); URINE BLOOD 3+ (Negative); URINE CLARITY CLOUDY; URINE COLOR YELLOW; URINE GLUCOSE-RANDOM* TRACE (Negative); URINE KETONES NEGATIVE (Negative); URINE NITRITE-REFLEX NEGATIVE (Negative); URINE PROTEIN (DIPSTICK) 2+ (Negative); URINE UROBILINOGEN 0.2 E.U./dl (0.2-1.0)
[2019-12-21 23:11] LABS: SQUAMOUS 0-3 Few /LPF (0-3); URINE LEUKOCYTES-REFLEX 3+ (Negative); URINE WBC-REFLEX >25 Many /HPF (0-5); WBC CLUMPS Moderate (None Seen)
[2019-12-21 23:12] LABS: BACTERIA-REFLEX 1-9 Few /HPF (None Seen); CASTS None Seen /LPF (None Seen); CRYSTALS None Seen /LPF (None Seen); MUCUS 0-3 Light strn/LPF (None Seen); URINE RBC >20 Many /HPF (0-2)
[2019-12-22] VITALS: BP 156/56
--- NOTE | 2019-12-22 03:17 | NUR ---
assumed pt care at the change of shift, pt is awake, alert and orientedx4, sr with 1st degree avb, assessments as charted, vss, medications given as per jun. c/o pain on the left hip, medicated prn as ordered with partial relief, manzanares in place, patent and draining well, weaned off oxygen, o2sats stable above 95%, pt sleeping, no distress noted, will continue to monitor
[2019-12-22 04:30] VITALS: BP 143/84
[2019-12-22 05:25] LABS: HEMATOCRIT 38.5 % (42.0-52.0); HEMOGLOBIN 12.8 gm/dL (14.0-18.0); MCH 35.5 pg (26.0-34.0); MCHC 33.2 g/dL (28.0-37.0); RBC 3.59 mil/uL (4.50-6.00); RDW 14.3 % (10.5-14.5); WBC 11.9 thou/uL (4.0-11.0)
[2019-12-22 05:51] LABS: ALBUMIN 3.1 g/dL (3.4-5.0); CALCIUM 8.2 mg/dL (8.5-10.1); CREATININE 2.1 mg/dL (0.7-1.3); PHOSPHORUS 3.3 mg/dL (2.5-4.9); POTASSIUM 5.1 mmol/L (3.5-5.1)
--- NOTE | 2019-12-22 06:56 | HC ---
[facility] [place] [address] CONSULTATION Name: GODFREY LEMUS Room #: 217-P ADM IN M.R.#: [id number] Admission: 12/21/19 Attend Phys: Uzair Tran MD Discharge: Date of : 32 Report #: [id number] THIS REPORT FOR: cc: Myles Campo Donald L. DO Clymer, David J. MD ~ CC: Uzair Songe Clemente DATE OF SERVICE: 12/21/2019 CHIEF COMPLAINT: Left femoral neck fracture. HISTORY OF PRESENT ILLNESS: This 89-year-old gentleman lives at home with family assistance. He injured the right hip about 1 year ago and required TFN nail fixation. He went to a rehab facility and then was able to return home with family assistance. He states he has been fully independent and moderately active at home. He is on rather limited medications and states that he is generally healthy. He fell at home injuring the left hip. X-rays now confirmed a displaced and unstable femoral neck fracture on the left side. He has no other apparent structural injuries. From my evaluation, he is alert and oriented and seems to understand the situation well. He states he has no other areas of discomfort or injury aside from the left hip. On physical exam, he does have multiple chronic bruises in both upper extremities consistent with possible coagulopathy. He notes he is on only aspirin. He demonstrates good movement of both upper extremities without any apparent discomfort. He seems to have satisfactory movement of the neck and back without discomfort in those areas. The right lower extremity reveals satisfactory movement at the hip and knee. His old TFN nail fixation seemed stable and there is no evidence of any new injury on the right side. The left lower extremity is shortened and slightly externally rotated consistent with a femoral neck fracture. He has pain with any attempted movement of the hip. There is no obvious bruising or swelling and the skin is intact. The left knee, lower leg, foot, and ankle appear to be normal. Neurologic status is normal. IMAGING STUDIES: X-rays of the pelvis and the left hip are obtained in the Emergency Department. These reveal an old TFN nail on the right side where the fracture seems to be well healed and stable. On the left side, there is a displaced and unstable femoral neck fracture. The rest of the bony architecture is acceptable. 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 [address] [address] CONSULTATION Name: GODFREY LEMUS Room #: 217-P ADM IN M.R.#: [id number] Admission: 12/21/19 Attend Phys: Uzair Tran MD Discharge: Date of : 32 Report #: [id number] IMPRESSION: I have discussed these issues at some length with the patient. I think surgical treatment is most appropriate. I would suggest a cemented left hip hemiarthroplasty. He understands and would like to proceed. Pending OR time and medical clearance, we may be able to proceed tomorrow with a left hip hemiarthroplasty. <ELECTRONICALLY SIGNED> By: Chandler Locke MD 12/22/19 0656 [id number] 1606 Chandler Locke MD /nt
[2019-12-22 07:19] VITALS: BP 155/66
--- NOTE | 2019-12-22 07:41 | EKG ---
[facility] [place] [address] ELECTROCARDIOGRAM REPORT Name: GODFREY LEMUS Room #: 217-P ADM IN M.R.#: [id number] Admission: 12/21/19 Attend Phys: Uzair Tran MD Discharge: Date of : 32 Report #: [id number] THIS REPORT FOR: cc: Myles Campo Donald L. DO Lundgren, Craig H. MD [facility] ~ THIS REPORT FOR: //name// [facility] ED Test Date: 2019-12-21 Test Time: 10:21:21 Pat Name: GODFREY LEMUS Department: Room: [facility] Gender: M Instructional Media Services Technician: LUISITO : [id number] Requested By: Agapito Amin Order Number: [id number] MD: Dinh Chu Measurements Intervals [place] Rate: 75 P: -30 VT: 206 QRS: 5 QRSD: 106 T: 59 QT: 390 QTc: 436 Interpretive Statements Sinus rhythm Early R wave progression Compared to ECG 08/29/2018 14:59:50 No significant change was found Electronically Signed On 12-22-2019 7:41:01 CDT by Dinh Chu [email or web address] <ELECTRONICALLY SIGNED> By: Dinh Chu MD, [facility] 12/22/19 0741 1021 1021 Dinh Chu MD, [facility] /EPI
--- NOTE | 2019-12-22 13:00 | NUR ---
ASSUMED CARE PT SHIFT CHANGE. ASSESSMENT CHARTED. PT ALERT AND ORIENTED. VSS. C/O LEFT HIP PAIN. MANAGED WITH IV PAIN MEDS. PT NPO FOR SURGERY TODAY. DAUGHTER AT BEDSIDE. PT TAKEN TO SURGERY AT APPROX 1130. REPORT PASSED ONTO ANGELIC TOVAR.
--- NOTE | 2019-12-22 13:24 | NUR ---
MID SHIFT CHANGE: ASSUMED CARE OF PT AT SHIFT CHANGE, HE IS OFF UNIT FOR SURGERY. WILL MONITOR AND ASSESS UPON RETURN. SEE SEPARATE INTERVENTIONS FOR ASSESSMENTS
--- NOTE | 2019-12-22 16:11 | NUR ---
REC PT BACK POST OP W/REPORTS OF PT'S BEHAVIOR BECOMING ERRATIC AND VIOLENT, REMOVED IV, MORE BUE SKIN TEARS. PT RETURNED ASKED DAUGHTER QUESTIONS ABOUT SURGERY AND BEGGED TO HAVE RESTRAINTS REMOVED YET ALSO BECOMES VERY IRRITATED ABOUT IT. WILL REMOVE THEM ONE AT A TIME PROTOCOL AND CATCH UP ON A.M. MEDS. DAUGHTER WANTS TO STAY THE NIGHT, WILL LET PHYSICIAN KNOW WE WILL NEED A SITTER I'VE HEARD PT YELLING OUT FROM THE ROOM. MAYBE WILL CALM DOWN BY NIGHT OR MID A.M. YET SINCE RULES DO NOT ALLOW FAMILY WILL ASK FOR SITTER. WILL CONTINUE TO MONITOR
[2019-12-22 16:20] LABS: HEMATOCRIT 36.8 % (42.0-52.0); HEMOGLOBIN 12.3 gm/dL (14.0-18.0); MCH 35.9 pg (26.0-34.0); MCHC 33.3 g/dL (28.0-37.0); MCV 107.6 fL (80.0-100.0); RBC 3.42 mil/uL (4.50-6.00); RDW 13.8 % (10.5-14.5); WBC 15.1 thou/uL (4.0-11.0)
--- NOTE | 2019-12-22 17:36 | NUR ---
RESTRAINTS: PT REPORTED, POST OP L HIP, WITH FOUR POINT RESTRAINTS DUE TO FLAILING, HITTING OUT, REMOVING IV, TEARING FLESH ON ARMS WITH HIS BEHAVIOR. WAS NOT AWARE WE COULD NOT DO THAT HERE. REACHED OUT TO GENERAL MEDICAL PRACTITIONER AND HOUSE SUPV ON HOW TO CHART AND WHAT TO CHART. PT NEEDS THE BLE FOR KEEPING LLE STILL AND NOT VIOLATING SURGERY WORK. AM AWAITING RESPONSE, DAUGHTER AT BEDSIDE, WILLING TO STAY, DR ESOCBAR OKAYED AN ORDER FOR A SITTER.
--- NOTE | 2019-12-22 19:04 | O ---
[facility] [place] [address] OPERATIVE REPORT Name: GODFREY LEMUS Room #: 217-P ADM IN M.R.#: [id number] Admission: 12/21/19 Attend Phys: Uzair Tran MD Discharge: Date of : 32 Report #: [id number] THIS REPORT FOR: cc: Myles Campo Donald L. DO Clymer, David J. MD ~ CC: Uzair Munozbelinda SrCornejo DATE OF SERVICE: 12/22/2019 PREOPERATIVE DIAGNOSIS: Left femoral neck fracture. POSTOPERATIVE DIAGNOSIS: Left femoral neck fracture. PROCEDURE: Left hip hemiarthroplasty. SURGEON: Chandler Locke MD INDICATIONS: This 89-year-old gentleman remains fairly alert and functionally independent and ambulatory. He fell at home injuring the left hip. X-rays confirmed a displaced and unstable femoral neck fracture. I have discussed this with the patient and his daughter and they have elected to go ahead with left hip hemiarthroplasty. DESCRIPTION OF PROCEDURE: The patient was taken to the operating room where he was placed under general anesthesia. Prophylactic intravenous antibiotics were administered. He was turned to the right lateral decubitus position. The left hip, thigh and leg were meticulously prepped and draped. A slightly curving posterolateral skin incision was made and extended through fascia and muscle to expose the posterior aspect of the hip joint. The short external rotators and capsule were taken down and preserved and tagged with several #1 FiberWire sutures. A femoral neck fracture was identified and the head was removed and measured at 55 mm in diameter. A femoral neck osteotomy was performed and the canal was opened with reamers and hand broaches. The Dozier and Nephew hip system was utilized. A cemented size 16 stem seemed to fit most appropriately. A trial reduction was performed and the hip fit nicely when using a 55 mm diameter head and a +0 neck length. This resulted in satisfactory alignment, range of motion, stability and leg length. The trial components were removed. The canal was thoroughly irrigated. A cement restrictor was placed in the canal. Methyl methacrylate cement was mixed and injected into the canal. The Dozier and Nephew size 16 cemented stem was selected. This was impacted into the canal, positioning this in about 15 [facility] [address] [place] [address] OPERATIVE REPORT Name: GODFREY LEMUS Room #: 217-P [facility] IN M.R.#: [id number] Admission: 12/21/19 Attend Phys: Uzair Tran MD Discharge: Date of : 32 Report #: [id number] degrees of anteversion. Excess cement was removed from around its margin. A unipolar head was then applied using the 55 mm diameter head and a +0 neck length sleeve. This was impacted down on the Holloway taper and the hip was reduced. Alignment, range of motion, stability and leg length were felt to be satisfactory. The wound was copiously irrigated. The capsule and short external rotators were closed using #1 FiberWire sutures, which were passed through drill holes in greater trochanter. The fascia was closed with multiple #1 Vicryl sutures. The adipose tissues and subcutaneous tissues were closed with 0 Monocryl. The skin was closed with skin juan josé. A sterile dressing was applied. The patient was awakened and returned to recovery room in good condition. <ELECTRONICALLY SIGNED> By: Chandler Locke MD 12/22/19 [id number] 1710 Chandler Locke MD /nt
[2019-12-22 20:21] VITALS: BP 147/62
[2019-12-22 23:58] VITALS: BP 139/73
--- NOTE | 2019-12-23 03:48 | NUR ---
PT IS ALERT AND ORIENTED X4. LUNGS ARE CLEAR. PT HAS A SITER. HAS TO BE REDIRECTED AT TIMES. TAKES HIS GOWN OFF. OUT OF RESTRAINTS AT THIS TIME. PAIN MEDS GIVEN FOR HIP PAIN. ABDUCTOR IS IN PLACE. HE HAS A UMANZOR WITH DRAINING LENA URINE. ABDOMEN IS ROUND BOWEL SOUNDS ACTIVE X4. CALL LIGHT WITHIN REACH. WAS IN RESTRAINTS NOW OUT AT THIS TIME. WITH A SITTER AT BEDSIDE [facility] PT CURRENTLY AT THIS TIME PER HIPOLITO
[2019-12-23 04:58] VITALS: BP 143/69
[2019-12-23 05:09] LABS: CREATININE 2.3 mg/dL (0.7-1.3); MAGNESIUM 1.8 mg/dL (1.8-2.4); POTASSIUM 4.9 mmol/L (3.5-5.1)
[2019-12-23 05:17] LABS: HEMATOCRIT 29.7 % (42.0-52.0); MCH 36.5 pg (26.0-34.0); MCHC 33.8 g/dL (28.0-37.0); MCV 107.9 fL (80.0-100.0); RBC 2.76 mil/uL (4.50-6.00); RDW 13.9 % (10.5-14.5); WBC 12.7 thou/uL (4.0-11.0)
[2019-12-23 05:55] LABS: HEMOGLOBIN 10.1 gm/dL (14.0-18.0)
[2019-12-23 09:22] VITALS: BP 128/54
--- NOTE | 2019-12-23 09:50 | NUR ---
initial assessment: pt a&ox4, sit up in bed. pt's dtr, liv, at bedside. liv lives with pt in [facility] on , w/elevator. pt is active, walks "long hallway," rides bike in exercise room a few times per wk. pt dependent w/adls. pt "even has been cooking lately."/liv. pt has hx w/5n and [facility]. liv would like for pt to use 5n, if needed. pt okay w/rtrn'g to [facility] if needed. pt denies hx hh. pt has "two types of walker" one with seat. pt has grab bars in his bathroom. cm to cont to follow.
[2019-12-23 13:05] VITALS: BP 133/48
[2019-12-23 17:12] VITALS: BP 134/62
--- NOTE | 2019-12-23 18:05 | NUR ---
ASSUMED CARE PT SHIFT CHANGE. ASSESSMENTS CHARTED.MEDS GIVEN PER JUN. PT ALERT AND ORIENTED. VSS.DENIES PAIN.PT DID NOT REQUIRE PAIN MEDS THIS SHIFT FOR HIP. O2 SATS WNL ON ROOM AIR. PT UP WITH PHYS THERAY X2 TOLERATING WELL. APPETITE ADEQUATE. DAUGHTER AT BEDSIDE THROUGHOUT SHIFT. PT SPOKE WITH REHAB FOAMING MACHINE OPERATOR FOR POSSIBLE ADMIT TO REHAB. PT CURRENTLY SITTING UP IN BED TALKING WITH DAUGHTER. PT IS PROGRESSING TOWARDS GOALS VERY WELL. DENIES NEEDS AT THIS TIME. WILL CONT TO MONITOR. WILL PASS ON REPORT TO ASIM RN.
[2019-12-23 19:15] VITALS: BP 147/55
[2019-12-24 04:45] VITALS: BP 141/50
[2019-12-24 06:30] LABS: HEMATOCRIT 29.8 % (42.0-52.0); HEMOGLOBIN 10.1 gm/dL (14.0-18.0); MCH 36.3 pg (26.0-34.0); MCHC 33.9 g/dL (28.0-37.0); MCV 107.1 fL (80.0-100.0); RBC 2.78 mil/uL (4.50-6.00); RDW 14.3 % (10.5-14.5); WBC 11.7 thou/uL (4.0-11.0)
[2019-12-24 06:48] LABS: ALBUMIN 2.7 g/dL (3.4-5.0); CREATININE 2.5 mg/dL (0.7-1.3); PHOSPHORUS 3.7 mg/dL (2.5-4.9); POTASSIUM 5.1 mmol/L (3.5-5.1)
[2019-12-24 08:07] VITALS: BP 146/61
--- NOTE | 2019-12-24 08:08 | NUR ---
ASSUME CARE 1900. PT/VITALS STABLE. INTERMITTENT LEFT HIP PAIN. MODERATE TOLERANCE TO ACTIVITY. PT/OT EVAL AND TX. UMANZOR STILL IN. ADEQUATE URINE OUTPUT. ASSESSMENT CHARTED. PROGRESSING WELL WITH POC. PLAN IS CONTINUE TO MONITOR INCISION SITE AND MANAGE PAIN. CONSULT TO INP[ATIENT REHAB PLACED FOR EVALUATION. WILL CONTINUE TO MONITOR ND FOLLOW WITH POC
[2019-12-24] MEDS ORDERED: VELTASSA8.4 GM PO (11:21)
[2019-12-24 13:12] VITALS: BP 123/59
[2019-12-24 16:23] VITALS: BP 143/65
--- NOTE | 2019-12-24 20:09 | NUR ---
ASSUMMED PT CARE AT APPROXIMATELY AT 0700. PT A&O X4. ASSESSMENT CHARTED. FALL PRECAUTIONS IN PLACE. PT DENIES HAVING CHEST PAIN. PT DENIES HAVING SOB. PT STATED HE HAD L HIP PAIN. PT RECEIVED ANALGESICS. PT STATED ANALGESICS HELPED RELEIVE PAIN. PT TRANSFERED TO 5N REHAB TODAY. REPORT GIVEN TO RN. RN STATED UNDERSTANDING AND DENIED HAVING FURTHER QUESTIONS. EDUCATED PT AND PT'S FAMILY ABOUT POC. PT AND PT'S FAMILY STATED UNDERSTANDING AND DENIED HAVING FURTHER CONCERNS. IV LEFT INTACT. TELE DC. PT COMFORTABLE. PT AMBULATES C MODERATE X 2 ASSIST. PT DENIES HAVING FURTHER CONCERNS.
--- NOTE | 2019-12-26 14:00 | H ---
[facility] [place] [address] HISTORY AND PHYSICAL Name: GODFREY LEMUS Room #: 217-P DIS IN M.R.#: [id number] Admission: 12/21/19 Attend Phys: Uzair Tran MD Discharge: 12/24/19 Date of : 32 Report #: [id number] THIS REPORT FOR: cc: Myles Campo,Uzair Stacy MD ~ CC: Uzair Cornejo DATE OF SERVICE: 12/21/2019 CONSULTING PHYSICIAN: Dr. Tran. HISTORY OF PRESENT ILLNESS: The patient is an 89-year-old male who fell from standing earlier this morning at 7:30 a.m. He was navigating his bedroom and his bed is too close to his dresser, he tripped and fell and alerted his daughter who came to get him immediately. The patient denies hitting his head or loss of consciousness. He is complaining of pain in his left hip only. PAST MEDICAL HISTORY: 1. Diabetes mellitus. 2. Neuropathy. 3. Gout. 4. Chronic kidney disease, recently on hemodialysis, no longer. 5. Degenerative disk disease. 6. History of atrial fibrillation, on Eliquis in the past, but no longer taking it, possibly had an ablation, but unsure. 7. Hypertension. PAST SURGICAL HISTORY: 1. Right hip nail. 2. Left foot surgery. 3. Ablation in 2013 for atrial fibrillation. 4. Umbilical hernia repair. 5. Left upper extremity AV fistula creation. SOCIAL HISTORY: Drinks 1 drink per night. Quit smoking 30 years ago. Lives with daughter. FAMILY HISTORY: Denies coagulopathy or malignancy. REVIEW OF SYSTEMS: CONSTITUTIONAL: No fever. No chills. HEENT: Denies blurring of vision, double vision, headaches, hearing loss, sinus [facility] [address] [place] [address] HISTORY AND PHYSICAL Name: GODFREY LEMUS Room #: 217-P DIS IN M.R.#: [id number] Admission: 12/21/19 Attend Phys: Uzair Tran MD Discharge: 12/24/19 Date of : 32 Report #: [id number] drainage or sore throat. Denies blurring of vision, double vision, headaches, hearing loss, sinus drainage or sore throat. CARDIOVASCULAR: Denies chest pain, palpitations, orthopnea or paroxysmal nocturnal dyspnea. RESPIRATORY: Denies cough, wheezing, hemoptysis, or shortness of air. GASTROINTESTINAL: No nausea. No vomiting. No diarrhea. No Heartburn. No nausea. No vomiting. No diarrhea. No Heartburn. GENITOURINARY: Denies dysuria or hematuria or kidney stones. No urinary frequency, urgency or incontinence. Denies dysuria or hematuria or kidney stones. No urinary frequency, urgency or incontinence. MUSCULOSKELETAL: See above and below. NEUROLOGICAL: Denies tremor, stroke or seizure. Denies tremor, stroke or seizure. HEMATOLOGIC / LYMPHATICS: Denies easy bruising, easy bleeding or enlarged lymph nodes. SKIN: No rash or ulceration. ENDOCRINE: No heat or cold intolerance PSYCHIATRIC: Denies depression, anxiety, or schizophrenia. PHYSICAL EXAMINATION: VITAL SIGNS: Temperature 36.7, pulse 86, respiratory rate 19, blood pressure 165/78, pulse oximetry 96%. GENERAL: No apparent distress, alert and oriented x3. HEENT: PERRLA, EOMI, MMM, NCAT NECK: Supple. No LAD CARDIOVASCULAR: Regular rhythm and rate. Hemodynamically stable. Normal capillary refill. Regular rhythm and rate. Hemodynamically stable. Normal capillary refill. PULMONARY: Nonlabored. Clear to auscultation bilaterally ABDOMEN: Soft, nontender to palpation, no guarding, no rigidity, no rebound tenderness, no hernias. EXTREMITIES: Calves soft, nontender, no edema. SKIN: No rashes or bruises. PSYCHIATRIC: Normal mood and affect Normal mood and affect NEUROLOGICAL: Grossly intact. CN II-XII grossly intact. MUSCULOSKELETAL: Bilateral upper extremities with nonpainful passive range of motion and 5/5 strength, right lower extremity with nonpainful range of motion and 5/5 strength, left lower extremity with painful left hip range of motion and strength not tested due to known injury. BACK: No cervical, thoracic or lumbar tenderness to palpation. LYMPHATICS: No cervical, inguinal, or supraclavicular lymphadenopathy. LABORATORY DATA: White blood count 9.3, hemoglobin 13.3, platelets 153. Sodium 140, potassium 6.3, creatinine 2.2. Troponin less than 0.06, albumin 3.6. INR 1.1. [facility] [address] [place] [address] HISTORY AND PHYSICAL Name: GODFREY LEMUS Room #: 217-P DIS IN M.R.#: [id number] Admission: 12/21/19 Attend Phys: Uzair Tran MD Discharge: 12/24/19 Date of : 32 Report #: [id number] IMAGING: CHEST X-RAY: IMPRESSION: 1. Cardiomegaly was unchanged with elevation left hemidiaphragm. 2. Left lower lobe atelectasis was increased from prior study. 3. Minimal emphysematous blebs and bullae were present in the apices. No evidence of acute pneumonia or pneumothorax. PELVIC X-RAY: IMPRESSION: 1. Left femoral neck fracture with mild impaction and displacement. 2. Maintain normal left hip location. 3. Prior right proximal femoral and internal fixation. ASSESSMENT AND PLAN: The patient is an 89-year-old male status post fall from standing. DIAGNOSES: 1. Fall from standing. 2. Left hip fracture. 3. Chronic kidney disease, previously on hemodialysis through left upper extremity AV fistula 4. Hyperkalemia. 5. Diabetes mellitus. 6. History of atrial fibrillation, currently in normal sinus rhythm. 7. Hypertension. 8. Gout. 9. Neuropathy. PLAN: 1. Admit to trauma. 2. Consult Medicine. Appreciate recommendations. 3. Consult Nephrology. Appreciate recommendations. 4. Consult Orthopedic Surgery. Appreciate recommendations. Bed rest until surgery. Okay for diet. From my perspective, may need to be n.p.o. for surgical planning. 5. COVID testing pending. 6. Analgesics and antiemetics. 7. IV fluids per Nephrology. 8. PT/OT/case management. <ELECTRONICALLY SIGNED> By: Uzair Tran MD 12/26/19 1400 1334 [id number] Uzair Tran MD /nt
== END 2019-12-24 17:35 | DRG 470 ==
LOC: ER 08:27 → 2N 10:28 → EROBS 10:28 → 2N 16:41
PROVIDERS: Emergency Medicine; Internal Medicine; Internal Medicine Nephrology; Orthopaedic Surgery; ADMIT Surgery; ATTEND Surgery
PROC: 0SRS019 Replacement of Left Hip Joint, Femoral Surface with Metal Synthetic Substitute, Cemented, Open Approach (ICD-10-PCS; principal; 2019-12-22)
DX: S72.002A Fracture of unspecified part of neck of left femur, initial encounter for closed fracture (principal); N18.4 Chronic kidney disease, stage 4 (severe); E87.1 Hypo-osmolality and hyponatremia; F05 Delirium due to known physiological condition; N17.9 Acute kidney failure, unspecified; M19.90 Unspecified osteoarthritis, unspecified site; E87.5 Hyperkalemia; E11.22 Type 2 diabetes mellitus with diabetic chronic kidney disease; N40.0 Benign prostatic hyperplasia without lower urinary tract symptoms; M10.9 Gout, unspecified; I48.91 Unspecified atrial fibrillation; E11.40 Type 2 diabetes mellitus with diabetic neuropathy, unspecified; I12.9 Hypertensive chronic kidney disease with stage 1 through stage 4 chronic kidney disease, or unspecified chronic kidney disease; Z20.828 Contact with and (suspected) exposure to other viral communicable diseases; E78.5 Hyperlipidemia, unspecified; E11.65 Type 2 diabetes mellitus with hyperglycemia; Z88.6 Allergy status to analgesic agent; Z88.1 Allergy status to other antibiotic agents; Z79.82 Long term (current) use of aspirin; Z79.899 Other long term (current) drug therapy; Z98.49 Cataract extraction status, unspecified eye; W18.39XA Other fall on same level, initial encounter; Y93.89 Activity, other specified; Y92.89 Other specified places as the place of occurrence of the external cause; Y99.8 Other external cause status
CPT/HCPCS: 10081; 10194; 50010; 50101; 50382; 50414; 50445; 51057; 51130; 51225; 51412; 53000; 53369; 56521; 56525; 56530; 57095; 57103; 62110; 62900; 70005

== ENCOUNTER 2019-12-24 15:11 | Inpatient (IN) | payer OTHER, BC ==
[~2019-12-24] VITALS: Ht 193 cm; Wt 109.8 kg
[~2019-12-24 15:11] MED LIST changes: +VELTASSA8.4 GM PO
--- NOTE | 2019-12-24 18:54 | NUR ---
PT ARRIVED AT 1745 FROM . ALERT AND ORIENTED*4. VITALS ARE STABLE. C/O LEFT HIP AND LOWER BACK PAIN, PAIN MEDICATION ADMINISTERED PRIOR TO TRANSFER. LEFT HIP CYNDEE DRESSING REMAINS INTACT AND PATENT, DRESSING IS DRY. DRESSING ON LEFT ARM CHANGED AND PICTURES TAKEN. PT HAS A UMANZOR PLACED ON 12/21, URINE IS LIGHT YELLOW AND CLEAR WITH NO FOUL ODOR. PT UP WITH 1-2 MOD ASSIST, GB AND WALKER. Q1H VISUAL CHECKS. CALL LIGHT WITHIN REACH. FALL PRECAUTIONS IN PLACE
[2019-12-24 20:30] VITALS: BP 141/69
--- NOTE | 2019-12-25 01:44 | NUR ---
ASSUMED CARE OF PT AT 1900HRS. PT IS AOX4 ADN LETS NEEEDS BE KNOWN. FALL PRECAUTION IN PLACE. SURGICAL CYNDEE DRESSING IS INTACT. UMANZOR IN PLACE AND IS PATIENT. PT WAS ABLE TO SIGN OWN CONSENTS. ABDUCTOR PILLOW AND SCDS INN PLACE WHILE IN BED. PT REPORTS SOME PAIN AND WAS TREATED WITH PRN PAIN MEDS. PT WAS ABLE TO FT COMFORTABLE AND SLEEP PART OF THE SHIFT. VSS AND NO S/S OF ACUTE DISTRESS. WILL CONTINUE TO MONITOR.
[2019-12-25 05:32] LABS: HEMATOCRIT 31.1 % (42.0-52.0); HEMOGLOBIN 10.6 gm/dL (14.0-18.0); MCH 36.6 pg (26.0-34.0); MCV 107.8 fL (80.0-100.0); RBC 2.88 mil/uL (4.50-6.00); RDW 13.9 % (10.5-14.5); WBC 8.5 thou/uL (4.0-11.0)
[2019-12-25 05:46] LABS: CALCIUM 8.2 mg/dL (8.5-10.1); CREATININE 2.3 mg/dL (0.7-1.3); POTASSIUM 4.5 mmol/L (3.5-5.1)
[2019-12-25 07:40] VITALS: BP 129/56; BP 96/65
--- NOTE | 2019-12-25 13:48 | NUR ---
ASSUMED CARES AT 0700. PT AWAKE, ALERT AND ORIENTED*4. C/O LEFT HIP AND BACK PAIN, PAIN MEDICATION ADMINISTERED NEEDED. VOLTAREN GEL APPLIED TO LEFT THIGH. CYNDEE DRESSING ON LEFT HIP REMAINS INTACT AND PATENT. PT C/O COUGH, COUGH DROP ADMINISTERED NEEDED. DRESSINGS ON LEFT ARM REMAIN DRY AND INTACT. PT UP WITH 1 MIN-MOD ASSIST, GB AND WALKER AND TOLERATED WELL. Q1H VISUAL CHECKS. CALL LIGHT WITHIN REACH. FALL PRECAUTIONS IN PLACE
[2019-12-25 19:00] VITALS: BP 152/55
--- NOTE | 2019-12-26 05:23 | NUR ---
Medicated for pain with some relief. He slept well during the night. Assisted to reposition prn for comfort per his request. Requested pillow in between his legs instead of abductor pillow. BG in the 200 at HS he stated it's only high because he just ate fruits prior. Left hip dressing intact with dried dge, has not changed from previous.
[2019-12-26 07:20] VITALS: BP 153/66
--- NOTE | 2019-12-26 10:40 | NUR ---
ASSUMED CARE AT 0700. PATIENT IS ALERT AND ORIENTED X4. PATIENT MCLEAN'S, SENIOR INSTRUCTIONAL DESIGNER ARE EQUAL. LUNGS ARE CLEAR AND DEMINISHED. ABD IS SOFT WITH BSX4. PATIENT HAS S.T. TO HIS LEFT ARM . OPTIFOAM DRESSING INTACT. PATIENT HAS LEFT HIP PICCO DRESSING IN PLACE. PATIENT HAS L.E. EDEMA. PATIENT HAS UMANZOR TO DD, DRAINING LENA COLORED URINE. UP IN THE CHAIR FOR MEALS. FALL AND SAFETY PROTOCOLS IN PLACE. C/O LEFT HIP PAIN. MEDICATED WITH PRN PAIN MED. CONTINUES TO PROGRESS SLOWLY TOWARDS D/C GOALS. WILL CONTINUE TO MONITER.
[2019-12-26 19:20] VITALS: BP 156/67
--- NOTE | 2019-12-27 01:40 | NUR ---
TURNING SLIGHTLY TO RIGHT SIDE WITH ICE TO LEFT HIP, APPRECIATES VOLTAREN GEL TO THIGH ALL THE WAY TO LEFT KNEE. REFUSES TONIGHT'S MIRALAX, STATES HAD BM ABOUT 11 O'CLOCK DURING THERAPY AND THE LAST 4 DAYS. DECLINES ABD PILLOW, PREFERS REGULAR PILLOW BETWEEN LEGS. UMANZOR TO DD. PAIN MED AT HS TO HELP SLEEP.
[2019-12-27 08:10] VITALS: BP 135/60
--- NOTE | 2019-12-27 13:28 | NUR ---
team meeting, reccommendation: missy 01/04 ( pt , ot, possible st and nursing.)
--- NOTE | 2019-12-27 16:35 | NUR ---
PT A&OX4. AMBULATES WITH WALKER/GAIT BELT AND ASSIST X1. UMANZOR CLAMPED AT 3PM FOR VOID TRIAL WILL UNCLAMP AT 7PM FOR 30 MIN THEN CLAMP AGAIN FOR ANOTHER 4 HRS. GOAL IS TO REMOVE UMANZOR TOMORROW. PAIN WAS PT'S CONCERN THIS AM. EXTRA PAIN MED ORDERED FOR PT/OT TODAY. CALL LIGHT W/I REACH CHAIR ALARM ON.
[2019-12-27 19:05] VITALS: BP 161/69
--- NOTE | 2019-12-28 05:18 | NUR ---
ASSESSNENT: PT REMAIN ALERT AND ORIENT TIMES THREE, FORGETFUL AT TIMES. VSS, AFEBRILE. CYNDEE DRSNG INTACT ON LEFT HIP. PAIN MEDICATION GIVEN WITH PARTIAL RELIEF PER PT. VOLTARAN GEL APPLIED TO THIGHS AND LE ON LEFT SIDE. UMANZOR CLAMPED FOR 4 HOURS AND RELEASED FOR 1 HOUR. ADEQUATE AMTS OF CLEAR YELLOW URINE OUT PUT NOTED. NO BM THIS SHIFT, PT REFUSED MIRALAX AND BISACODYL, STATES THAT HE HAD 3 STOOLS, ONE WAS DIARRHEA CONSISTANCY. SLOW PROGRESS TOWARDS DC GOALS, WILL CONTINUE TO MONITOR.
[2019-12-28 06:32] LABS: ALBUMIN 2.6 g/dL (3.4-5.0); CREATININE 2.3 mg/dL (0.7-1.3); PHOSPHORUS 4.2 mg/dL (2.5-4.9); POTASSIUM 4.8 mmol/L (3.5-5.1)
[2019-12-28 07:08] VITALS: BP 140/60
[2019-12-28 08:23] LABS: HEMATOCRIT 28.7 % (42.0-52.0); MCH 37.2 pg (26.0-34.0); MCHC 34.9 g/dL (28.0-37.0); MCV 106.8 fL (80.0-100.0); RBC 2.68 mil/uL (4.50-6.00); RDW 14.1 % (10.5-14.5); WBC 8.7 thou/uL (4.0-11.0)
--- NOTE | 2019-12-28 10:58 | NUR ---
ASSUMED CARE AT 0700. PT IS RESTING IN BED AND WITH MINIMAL PAIN AFTER RECEIVING PAIN MEDS EARLIER. PAIN IS EXCERABATED WITH ACTIVITY AND MOVEMENT. HAD DIARRHEA LAST NIGHT AND REFUSED ANY BOWEL REGIMEN TODAY. UMANZOR INTACT AND DRAINING WITH Q4 HOURS CLAMPING. ADEQUATE OUTPUT WITH CLEAR DRAINAGE. LEFT HIP DRESSING INTACT AND DRY. REPORTS SPASMS OCCASIONALLY BUT IS MANAGEABLE AFTER RECEIVING PAIN MEDS. LUNGS CLEAR, BOWEL SOUNDS ACTIVE, APPETITE GOOD, SLEPT WELL LAST NIGHT. PLAN FOR ST PT AND OT THIS MORNING. PROGRESSING SLOW AND IS PARTICIPATING WITH THERAPY. NO OTHER CONCERNS CONT TO MONITOR.
[2019-12-28 11:02] LABS: ABSOLUTE NEUTROPHILS 6.3 thou/uL (1.4-8.2); ANISOCYTOSIS 1+; MACROCYTES 1+; METAMYELOCYTES 1 %; PLATELET COUNT 172 thou/uL (150-400); PLATELET ESTIMATE NORMAL
[2019-12-28 14:18] VITALS: BP 140/60
--- NOTE | 2019-12-28 14:18 | NUR ---
FAXED REFERRAL TO [facility] SPOKE WITH [facility] IN INTAKE SHE RECEIVED REFERRAL AND WILL ACCEPT AT [place].
[2019-12-28 19:13] VITALS: BP 153/56
--- NOTE | 2019-12-29 00:47 | NUR ---
PT ASSESSMENT COMPLETED AND VSS. MEDS GIVEN ORDERED AND WELL TOLERATED. FALL PRECAUTIONS IN PLACE. ASST WITH REPOSITION AND FOLLOWED HIP PRECAUTIONS. SAT WNL ON RA. CYNDEE DRESSING ON LEFT HIP DRY AND INTACT WITH DRY BLOODY DRAINAGE COVERING 3/4 OF THE DRESSING AND A BRUISE BELOW THAT DOES NOT APPEAR TO BE NEW. ASKED RN AMALIA TO LOOK AT DRESSING AND SHE AGREED. PT STATES THAT [facility] HAVE BEEN LOOKING AT THE DRESSING DAILY AND ARE AWARE OF THE DRAINAGE. CONTACTED VANESSA ROBISON WITH UPDATE REGARDING DRESSING APPEARANCE AND BRUISE. NO NEW ORDERS AT THIS TIME. RENALDO PRAFO BOOTS IN PLACE. PT REFUSED ABDUCTOR PILLOW BUT DID ALLOW STAFF TO USE A PILLOW BETWEEN HIS LEGS. CREAM APPIED TO WHAT APPEARS TO BE HEALING FRICTION WOUNDS ON HIS RENALDO BUTTOCK. PICTURE OF FRICTION WOUND TAKEN. PT DID NOT WANT REMOVE HIS SHORTS AND BRIEF BUT WAS ABLE TO ENCOURAGE HIM TO DO SO FOR HEALING OF THE FRICTION WOUNDS ON HIS BOTTOM. RESTING. PRN PAIN MEDICATION HELPFUL. WILL CONTINUE TO MONITOR FREQUENTLY.
--- NOTE | 2019-12-29 01:17 | NUR ---
CLAMPING PT UMANZOR Q4 HOURS ORDERED. ONE TIME PT DID FEEL THAT HE HAD TO URINATE. FIRST TIME PT DID NOT HAVE THE URGE TO URINATE. WILL CONTINUE TO MONITOR.
[2019-12-29 05:56] LABS: ABSOLUTE NEUTROPHILS 7.2 thou/uL (1.4-8.2); BASOPHILS 0.7 % (0.0-2.0); EOSINOPHILS 1.6 % (0.0-3.0); HEMATOCRIT 29.2 % (42.0-52.0); LYMPHOCYTES 8.3 % (24.0-44.0); MCH 36.7 pg (26.0-34.0); MCHC 34.1 g/dL (28.0-37.0); MCV 107.6 fL (80.0-100.0); MONOCYTES 7.3 % (1.0-8.0); PLATELET COUNT 166 thou/uL (150-400); POLYS 82.1 % (36.0-66.0); RBC 2.72 mil/uL (4.50-6.00); RDW 14.3 % (10.5-14.5); WBC 8.8 thou/uL (4.0-11.0)
[2019-12-29 06:41] LABS: CREATININE 2.4 mg/dL (0.7-1.3); MAGNESIUM 2.3 mg/dL (1.8-2.4); POTASSIUM 4.7 mmol/L (3.5-5.1)
[2019-12-29 08:00] VITALS: BP 146/64
[2019-12-29 19:00] VITALS: BP 155/50
--- NOTE | 2019-12-29 19:31 | NUR ---
PT CARE ASSUMED AT 0700.A&Ox4. MFISTULA WITH THRILL AND BRUIT. CYNDEE DRESSING INTACT WITH DRY BLOOD. PRAFO BOOTS ON WHENEVER IN BED. UMANZOR REMOVED. SKINTEAR DRESSING INTACT WITH DRESSING CHANGE MO,WE,THU. ACHS WITH NO COVERAGE NEEDED. [facility] ORDERED AWAITING DELIVERY. UP WITH ONE ASSIST AND WALKER. PILLS WHOLE WITH WATER. NO DIARRHEA NOTED TODAY. FORMED SMALLED BMS. FALL PROTOCOL IN PLACE. CALL LIGHT IN REACH. WILL CONTINUE TO MONITOR.
--- NOTE | 2019-12-30 03:31 | NUR ---
USING URINAL WITHOUT PROMPTING, DECLINED LAXATIVES SINCE HE HAS HAD BM AT LEAST DAILY ALL WEEK. APPRECIATES VOLTAREN FROM DRESSING TO LEFT KNEE. PAIN MED AND CEPACOL AT HS PER REQUEST.
[2019-12-30 08:00] VITALS: BP 143/54
[2019-12-30 19:01] VITALS: BP 165/56
--- NOTE | 2019-12-30 19:10 | NUR ---
ASSUMED CARE OF PT AT 0700. PT IS A&OX4 AND VITAL SIGNS ARE STABLE. ACCU CHECKS ACHS, GLIPIZIDE HELD THIS PM DUE TO LOW BG. PAIN MANAGED WITH PO MEDICATIONS, PARTICIPATED IN SCHEDULED THERAPIES. CYNDEE DRESSING STOPPED THIS SHIFT, DISCONNECTED PER ORDER FROM DR VALDES'S OFFICE. FALL AND HIP PRECAUTIONS IN PLACE AND NURSING WILL CONTINUE TO MONITOR.
--- NOTE | 2019-12-31 03:30 | NUR ---
Patient was already in bed when shift started, A & O x3, clear voice, breathing normally with no signs of distress. Patient's Villarreal was discontinued during day shift and he is still struggling with being able to call for help with the urinal on time to catch urine before an accident occurs. During his evening med pass, patient informed Nurse his pad and draw sheet were wet; Nurse and PROFESSOR OF MUSICOLOGY realized while trying to change the bad that patient was more wet than he had informed, and all beddings were chaged and the matress wiped dry. Patient was educated on the need to use his call light as soon as he feels the urge and/or feels wet, especially as his bottom was noticed to be tender with an opening in the skin around the bottom area, related to wetness and pressure. Barreer cream was applied copiously to bottom area and pillow was used to relief pressure off the bottom area by slanting patient on one left side (to be changed every two hours). Patient requested pain pill and Voltarene external cream on his thigh, stating that the combination always helps him get sleep free of pain at night. Patient continues to be monitored for any changes.
[2019-12-31 05:18] LABS: ALBUMIN 2.8 g/dL (3.4-5.0); CALCIUM 8.5 mg/dL (8.5-10.1); CREATININE 2.4 mg/dL (0.7-1.3); PHOSPHORUS 3.5 mg/dL (2.5-4.9); POTASSIUM 5.2 mmol/L (3.5-5.1)
[2019-12-31 07:20] VITALS: BP 164/69
--- NOTE | 2019-12-31 14:39 | NUR ---
ASSUMED CARE OF PT AT 0700. PT IS A&OX4 AND VITAL SIGNS ARE STABLE. PT DENIES PAIN AND PARTICIPATED IN SCHEDULED THERAPIES. POTASSIUM ELEVATED ON AM LABS, NOTIFIED NEPHROLOGY, NEW ORDERS OBTAINED. PT NOTED TO HAVE BLOOD STREAKED STOOLS THIS SHIFT. NOTIFIED PROVIDER, PT DENIES DISCOMFORT. ACCU CHECKS BID. VOIDS APPROPRIATELY. FALL PRECAUTIONS IN PLACE AND NURSING WILL CONTINUE TO MONITOR.
--- NOTE | 2019-12-31 17:17 | NUR ---
ASSUMED CARE OF PT AT 0700. PT IS A&OX4 AND VITAL SIGNS ARE STABLE. PT REPORTS PAIN, MANGED WITH PO MEDICATIONS. PT REFUSED THERAPIES. PT STATES THAT HE IS TOO TIRED AND WEAK TO PARTICIPATE TODAY. POTASSIUM ELEVATED ON AM LABS, NEPHROLOGY NOTIFIED AND NEW ORDERS OBTAINED. BLOOD STREAKED STOOLS NOTED AND REPORTED TO DR. BURNS. FALL PRECAUTIONS IN PLACE AND NURSING WILL CONTINUE TO MONITOR.
[2019-12-31 18:24] LABS: HEMATOCRIT 32.7 % (42.0-52.0); HEMOGLOBIN 10.7 gm/dL (14.0-18.0)
[2019-12-31 19:15] VITALS: BP 124/48
--- NOTE | 2020-01-01 05:05 | NUR ---
Patient was in bed already, watching TV at the begining of shift. He complained to the nurse about his thigh and hip (incision site) pain, and when nurse explained it was too soon for any pain medication according to the computer, he indicated understanding and was ok with waiting till when he can get the next dose. His other medications were administered, after which he went to sleep, requesting that the nurse wake him up when his pain pill, volterene cream and Gabapentin can be administered at once. Patient has had two complete beddings changes to prevent him from laying on wet pads and sheets for extended periods. Patient struggles with placing the urinal correctly while in bed and ends up raising the urinal too high and emptying all urine onto himself and the bed. Nurse ensures urinal is empty immideately after use or during each hourly round if there is any urine present. Patient was also checked constantly for any moisture than needed cleaning and/or changing. Patient still has a superficially open sore on his right bottom cheek, towards the bottom crack, which is responding well to bareer cream application and timely changes and turns that help reduce pressure on the bottom area. Patient expressed sadness and despair related to missing his and harnessing feelings that his 6 children, with at least 4 who are either nurses or doctors are nowhere around when he needs them now. He shows no classic signs of depression, but may possibly be struggling with the fact that he always has accidents when attempting to use the urinal. He even states "I am sorry i have to be a nuisance and give you guys so much work. It has been a long time since I wet my bed". Nurse re-assured patient and showed understanding by letting him know he is not a nuisance at all and the staff are all happy to help whenever the need arises. Patient had his pain and other meds when they were due, which helped his pain. He is cuerrently resting quietly in his room with eyes closed and visible respirations.
[2020-01-01 06:24] LABS: CALCIUM 8.4 mg/dL (8.5-10.1); CREATININE 2.6 mg/dL (0.7-1.3); PHOSPHORUS 3.6 mg/dL (2.5-4.9); POTASSIUM 5.2 mmol/L (3.5-5.1)
[2020-01-01 08:00] VITALS: BP 123/76
--- NOTE | 2020-01-01 16:17 | NUR ---
Assumed pt care this am a and o x [address] on the left hip c/d/i attelizabeth has . Able to ambulate with a walkerfrom bed to toilet, had a bm today, no traces of blood have been noted. Pt is very incontinent of bladder, tried to use the urinal bus is unsteady and would spill content of urinal on the bed. External male cat in place. Several total bed changes done through out the day. Daughter is at the bedside. Wounds on the left fore arm, dressing are clean dry and intact. Barrier cream place on botton, no redness has been noted. Pain is managed with medication, partial relief noted, as per the daughter he regularly take pain meds 3 times a day at home. Pt would be taking several naps through out the shift. POC followed with no signs opr verbalizations of distress noted.
[2020-01-01 19:09] VITALS: BP 182/78
--- NOTE | 2020-01-02 04:39 | NUR ---
Patient has been abnormally restless and anxious today, sounding a little confused each time nursing staff has been in to help with necessary tasks. More than once he was crying about missing his and has talked about dying or being left to , at least three times during the shift. Patient has also been complaining about discomfort and pain with his lower right back and left hip and thigh; all of which respond to pain pill and Voltarene, especially if both are administered simultaneously. Per family and patient request, patient goes to bed with an external urinary catheter, so he does not have accidents at night. Recommendation for day shift to possibly add patient to the lists for Psych and ancillary services manager consult, as well as contactying physician for possible urine sample to rule out UTI. between intermittent, short moments of restlesness, agitation and confusion, patient had more episodes of resting in bed quietly, with eyes closed and visible respirations.
[2020-01-02 07:18] VITALS: BP 176/58
[2020-01-02 08:16] LABS: ALBUMIN 2.9 g/dL (3.4-5.0); CALCIUM 8.8 mg/dL (8.5-10.1); CREATININE 2.3 mg/dL (0.7-1.3); PHOSPHORUS 3.6 mg/dL (2.5-4.9); POTASSIUM 5.1 mmol/L (3.5-5.1)
--- NOTE | 2020-01-02 10:41 | PLAN ---
[facility] [place] [address] REHAB UNIT PLAN OF CARE Name: GODFREY LEMUS Room #: 503-P ADM IN M.R.#: [id number] Admission: 12/24/19 Attend Phys: Chandler Ochoa MD Discharge: Date of : 32 Report #: [id number] THIS REPORT FOR: //name// CC: Chandler Campo DATE OF SERVICE: 12/27/2019 PROGRESS NOTE/OVERALL PLAN OF CARE SUBJECTIVE: The patient was seen back in followup. He is in no distress. Last recorded temperature of 36.3, pulse 82, respirations 18, blood pressure 135/60. He is alert, pleasant. He does have the indwelling Villarreal catheter. Hip is dressed. He is working in therapies with transfers, min assist, gait, contact guard 50 feet front-wheeled walker. In occupational therapy, lower body dressing is mod assist. Speech therapy, has mild comprehensive deficits. Mild cognitive deficits, mild memory deficits. IMPRESSION: An 89-year-old male with the following problem list: 1. Left femoral neck fracture, status post hemiarthroplasty 12/22/2019, weightbearing as tolerated. 2. Toxic metabolic encephalopathy. 3. Postop delirium, which is improved. 4. Electrolyte abnormalities. 5. Chronic kidney disease stage 4. 6. Diabetes mellitus type 2. 7. Benign prostatic hypertrophy. 8. Hypertension. 9. History of gout. PLAN: The overall plan of care is based on the preadmission screen, post-admission physician evaluation and information garnered from therapy assessments. 1. Estimated length of stay is probably 10 days to 2 weeks. We actually met with the therapy team today and set a discharge on , 01/05/2020. 2. Medical prognosis is reasonably good. 3. Anticipated interventions includes the interdisciplinary acute inpatient rehabilitation program. 4. Anticipated functional outcomes would be for the patient to further improve as far as transfers, mobility, ADLs as well as cognition, so that he can return back to the home setting. Goals to be independent at a walker level. 5. Discharge destination would be home with his daughter. 6. Expected therapy by discipline includes PT, OT and speech 1 hour per day [address] [address] REHAB UNIT PLAN OF CARE Name: GODFREY LEMUS Room #: 503-P ADM IN M.R.#: [id number] Admission: 12/24/19 Attend Phys: Chandler Ochoa MD Discharge: Date of : 32 Report #: [id number] each five days a week throughout the duration of the acute inpatient rehabilitation stay. <ELECTRONICALLY SIGNED> By: Chandler Ochoa MD 01/02/20 1041 [id number] Chandler Ochoa MD /nt
--- NOTE | 2020-01-02 10:41 | H ---
[facility] [place] [address] HISTORY AND PHYSICAL Name: GODFREY LEMUS Room #: 503-P ADM IN M.R.#: [id number] Admission: 12/24/19 Attend Phys: Chandler Ochoa MD Discharge: Date of : 32 Report #: [id number] THIS REPORT FOR: cc: Myles Campo,Chandler Mejia MD ~ CC: Chandler Campo DATE OF SERVICE: 12/24/2019 HISTORY AND PHYSICAL/POSTADMISSION PHYSICIAN EVALUATION HISTORY OF PRESENT ILLNESS: The patient is an 89-year-old male who was admitted later yesterday for acute in-hospital inpatient rehabilitation. The patient was originally admitted to [facility] on 12/21/2019 after a fall at home. He sustained a left femoral neck fracture and underwent a left hip hemiarthroplasty on 12/22/2019 and is allowed weightbearing as tolerated. He had initial postop delirium/metabolic encephalopathy that was requiring restraints and had a sitter overnight. Nephrology was involved with elevated potassium. He also had hyponatremia. It was felt to be gradually improve. He was felt to be ready for acute in-hospital inpatient rehabilitation and has been admitted for an acute rehab stay. PAST MEDICAL HISTORY: Prior medical history includes diabetes mellitus, neuropathy, gout, chronic kidney disease, who was previously on hemodialysis, degenerative arthritis, history of atrial fibrillation, on Eliquis in the past. Noted to be no longer taking it and possibly has had an ablation and history of hypertension. MEDICATIONS: Please see the full medication listing. ALLERGIES: MORPHINE AND VANCOMYCIN ARE NOTED. SOCIAL HISTORY: The patient was noted to be living at home with his daughter in a condominium with no stairs. No assistive device, was independent with ADLs and IADLs. REVIEW OF SYSTEMS: No complaints of chest pain, shortness of breath or abdominal discomfort. PHYSICAL EXAMINATION: GENERAL: The patient was seen later yesterday, in no distress. VITAL SIGNS: Last recorded temperature 97.3, pulse 84, respirations 18, blood pressure 141/69. He has the abductor bolster in place. Follows basic commands some latency to his responses. [facility] [address] [place] [address] HISTORY AND PHYSICAL Name: GODFREY LEMUS Room #: 503-P ADM IN M.R.#: [id number] Admission: 12/24/19 Attend Phys: Chandler Ochoa MD Discharge: Date of : 32 Report #: [id number] HEENT: Otherwise appeared benign. CHEST: Sounded clear to auscultation. CARDIOVASCULAR: Regular rate and rhythm. ABDOMEN: Bowel sounds positive, nontender. GENITOURINARY AND RECTAL: Deferred. EXTREMITIES: His hip is dressed. No focal abnormalities noted on extremity examination. Functionally, he was up yesterday was able to sit to stand, transfer with mod assist. Gait was 25 feet min assist with a front-wheeled walker. This occurred prior to his coming up to the rehab [facility]. IMPRESSION: This is an 89-year-old white male with the following problem list: 1. Left femoral neck fracture, status post hemiarthroplasty on 12/22/2019, weightbearing as tolerated. 2. Toxic metabolic encephalopathy. 3. Postop delirium, improved/resolved. 4. Electrolyte abnormalities. 5. Chronic kidney disease stage 4. 6. Type 2 diabetes mellitus. 7. Benign prostatic hypertrophy. 8. Hypertension. 9. History of gout. PLAN: The patient has been admitted for acute in-hospital inpatient rehabilitation. From a postadmission physician evaluation perspective, there are no relevant changes since the preadmission screening. Please see the above review of prior and current medical and functional conditions and comorbidities. Please see the patient's previous and current functional status. As far as risk of complications, the patient has the above noted medical comorbidities. Initial plan of care involves the interdisciplinary acute inpatient rehabilitation program. Prognosis is reasonably good with estimated length of stay probably at least 10 days to 2 weeks. Potential barriers would include the patient's multiple medical comorbidities and decreased functional status. The patient meets diagnostic criteria for an acute in-hospital inpatient rehabilitation stay. He meets the medical necessity criteria. He does have the tolerance for therapies and has appropriate discharge goals back to the home setting. <ELECTRONICALLY SIGNED> By: Chandler Ochoa MD 01/02/20 1041 [id number] [id number] Chandler Ochoa MD /[facility]
--- NOTE | 2020-01-02 18:28 | NUR ---
PT ALERT AND ORIENTED TIMES THREE, SLOW TO RESPOND WITH PERIODS OF CONFUSION. PT VERY LETHARGIC TODAY. VSS TOLERATED MEDS. VERY POOR APPETITE. PT HAS BEEN UP TO THE CHAIR FOR SOME PART OF THE SHIFT. PT DID NOT DO WELL WITH PT TODAY. PT C/O PAIN PRN PAIN MEDICATIONS GIVEN WITH SOME RELEIF. PT DAUGHTER AT BEDSIDE THIS EVENING. WILL CONTINUE TO MONITOR.
[2020-01-02 19:30] VITALS: BP 156/55
--- NOTE | 2020-01-03 00:41 | NUR ---
ASSUMED CARE OF PT AT 1915 ON 01/02/20. PT WAS SLEEPING, & MODERATELY AROUSABLE. IS ORIENTED X3. IS ON ROOM AIR. IS STABLE. REPORTED PAIN IN LEFT HIP & WAS PROVIDED WITH PAIN MEDS & OTHER THERAPUETIC TECHNIQUES. CYNDEE DRSG INTACT WITH A LARGE AMOUNT OF DRIED RED/BROWN DRAINAGE. HEEL PROTECTORS IN PLACE. FALL PRECAUTIONS & HOURLY ROUNDING CONTINUED THIS SHIFT. LABS & VITALS REVIEWED. PT IS TURNED Q2H. PT STATED A COUPLE OF TIMES TONIGHT, "I WISH I WOULD JUST ! WHY W0N'T I JUST ?". THIS NURSE & STENOTYPE MACHINE OPERATOR PROVIDED THERAPUETIC COMMUNICATION WITH PT. PT WAS THANKFUL. PT IS INCONT TO BOTH B&B. CONDOM CATH WAS IN PLACE AT START OF SHIFT. THIS NURSE & STENOTYPE MACHINE OPERATOR ATTEMPTED TO PUT IT BACK IN PLACE WITHOU SUCCESS. UA STILL NEEDED. PT IS CURRENTLY SLEEPING. CALL LIGHT WITHIN REACH. DAUGHTER WAS AT BEDSIDE AT SHIFT CHANGE. WILL BE BACK TOMORROW WITH MORE CONDOMS FOR CATH. WILL CONTINUE TO MONITOR.
[2020-01-03 06:06] LABS: HEMATOCRIT 28.9 % (42.0-52.0); HEMOGLOBIN 9.5 gm/dL (14.0-18.0); MCH 35.4 pg (26.0-34.0); MCV 107.2 fL (80.0-100.0); RBC 2.69 mil/uL (4.50-6.00); WBC 12.9 thou/uL (4.0-11.0)
[2020-01-03 07:30] VITALS: BP 139/48
--- NOTE | 2020-01-03 07:42 | HC ---
[facility] [place] [address] CONSULTATION Name: GODFREY LEMUS Room #: 503-P ADM IN M.R.#: [id number] Admission: 12/24/19 Attend Phys: Chandler Ochoa MD Discharge: Date of : 32 Report #: [id number] THIS REPORT FOR: cc: Myles Campo,Marck Ceballos. PhD ~ CC: Chandler Campo DATE OF SERVICE: 01/02/2020 NEUROBEHAVIORAL STATUS EXAM ATTENDING PHYSICIAN: Chandler Ochoa MD CUSTOM PROTECTION OFFICER: Marck Marquez, PhD DATE OF CONSULTATION: 12/31/2019 CLINICAL PRESENTATION: The patient is an 89-year-old male admitted to the rehabilitation unit for a comprehensive inpatient rehabilitation program. He was admitted initially with a diagnosis of left femoral neck fracture, status post hemiarthroplasty and is weightbearing as tolerated. Additional impressions on admission to the rehabilitation unit was left femoral neck fracture status post hemiarthroplasty, toxic metabolic encephalopathy; postoperative delirium, improved/resolved; electrolyte abnormalities, chronic kidney disease stage 4, diabetes mellitus, benign prostatic hypertrophy, hypertension and history of gout. A complete description of his medical condition and history can be found in his medical record. Neuropsychological consultation was requested to provide assistance in the assessment of cognitive and emotional status and to provide recommendations and services. Prior to this most recent admission, the patient is reported to have been living with his daughter. His daughter is reported to have stayed with him. The patient is reported to have been driving prior to this most recent medical event. The patient was very difficult to arouse during my interview and the assessment was discontinued. He was quite fatigued, sluggish and sleepy. Attention and alertness was very poor. The patient was able to say that he broke his hip following a fall, leading to his hospitalization. SUMMARY AND RECOMMENDATIONS: The patient is reported to have required assistance with IADLsfrom his daughter prior to this medical event. He has multiple co-morbities and an extended [facility] [address] [place] [address] CONSULTATION Name: GODFREY LEMUS Room #: 503-P ADM IN M.R.#: [id number] Admission: 12/24/19 Attend Phys: Chandler Ochoa MD Discharge: Date of : 32 Report #: [id number] delirium during recovery from his surgery. 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 Given his diminished alertness, more formal assessment is delayed. Psychiatry has been consulted. Consider the use of Nuvigil to improve wakefulness. A followup assessment and interview with his daughter will be helpful. I will continue to follow for neurobehavioral assessment as the patient's level of alertness improves. Thank you very much for allowing me to provide the consultation on this patient. <ELECTRONICALLY SIGNED> By: Marck Marquez, PhD 01/03/20 0742 [id number] Marck Marquez, PhD /nt
[2020-01-03 08:08] LABS: CALCIUM 8.5 mg/dL (8.5-10.1); POTASSIUM 5.1 mmol/L (3.5-5.1)
--- NOTE | 2020-01-03 10:50 | NUR ---
ASSUMED CARE AT O700. PATIENT IS ALERT AND ORIENTED X3. PATIENT MCLEAN'S, RESTAURANT AREA MANAGER ARE EQUAL. LUNGS ARE CLEAR AND DEMINISHED. ABD IS SOFT WITH BSX4. UP TO THE BSC WITH ASSIST OF 1 STAFF GATE BELT AND WALKER. PATIENT VOIDED LENA COLORED URINE AND HAD BM. UP IN BED FOR BREAKFAST. FALL AND SAFETY PROTOCOLS IN PLACE. C/O PAIN IN BACK AND LEFT HIP. MEDICATED WITH SCED PAIN MED. CONTINUES TO PROGRESS SLOWLY TOWARDS D/C GOALS. PATIENT HAS ST TO HIS LEFT HAND AND ARM. PATIENT HAS S.T. TO HIS LEFT BUTTOCK BARRIER CREAM APPLIED. PATIENT IS ON AIR LOSS MATTRESS. WILL CONTINUE TO MONITER
--- NOTE | 2020-01-03 13:09 | NUR ---
team meeting, reccommendation: c/o of back pain. dc on with [facility] ( pt, ot, nursing, st) daughter needs tranning with therapy. no dme needs
[2020-01-03 16:15] LABS: URINE BILIRUBIN NEGATIVE (Negative); URINE BLOOD NEGATIVE (Negative); URINE CLARITY CLEAR; URINE COLOR YELLOW; URINE GLUCOSE-RANDOM* NEGATIVE (Negative); URINE KETONES NEGATIVE (Negative); URINE LEUKOCYTES-REFLEX NEGATIVE (Negative); URINE PROTEIN (DIPSTICK) NEGATIVE (Negative); URINE UROBILINOGEN 0.2 E.U./dl (0.2-1.0)
[2020-01-03 16:25] LABS: URINE NITRITE-REFLEX POSITIVE (Negative)
[2020-01-03 16:26] LABS: SQUAMOUS 0-3 Few /LPF (0-3)
[2020-01-03 16:27] LABS: BACTERIA-REFLEX 1-9 Few /HPF (None Seen); CASTS None Seen /LPF (None Seen); CRYSTALS None Seen /LPF (None Seen); URINE RBC None Seen /HPF (0-2); URINE WBC-REFLEX 0-5 Rare /HPF (0-5)
[2020-01-03 19:15] VITALS: BP 141/60
--- NOTE | 2020-01-04 03:19 | NUR ---
TURNED TO RIGHT SIDE, FEET ON PILLOWS, TYLENOL AGAIN FOR PAIN, EXTERNAL CATH PLACED AT 0100. APPRECIATED Z-GUARD TO BUTTOCKS, VOLTAREN GEL FOCUSED MORE ON PATELLA TODAY BECAUSE PATIENT STATES THAT OUR PRVIOUS STRATEGY OF USING IT ON LATERL QUADRICEP WAS CAUSING MUSCLE SPASMS. WISHES HE COULD HAVE A DOSE OF HYDROCODONE STATING THAT HE HAS TAKEN IT FOR A YEAR OR TWO
[2020-01-04 07:15] VITALS: BP 153/49
[2020-01-04 09:40] LABS: CALCIUM 8.2 mg/dL (8.5-10.1); CREATININE 2.8 mg/dL (0.7-1.3); POTASSIUM 5.1 mmol/L (3.5-5.1)
--- NOTE | 2020-01-04 13:26 | NUR ---
provider plus was check on wheel chair for pt at home, found medicare 07/30/2015 electric scooter ([facility]) # [phone]. will have pt daughter call and let them know needs fixed rt wheels don't stay on.
--- NOTE | 2020-01-04 14:37 | NUR ---
ASSUMED CARE AT 0700. PAITENT IS ALERT AND ORIENTEDX4. PATIENT MCLEAN'S MARKETING MANAGER ARE EQUAL. LUNGS ARE CLEAR AND DEMINISHED. ABD IS SOFT WITH BSX4. PATIENT IS UP TO THE BATHROOM TO VOID LENA COLORED URINE. UP WITH ASSIST OF 1 STAFF AND GAIT BELT AND WALKER. FALL AND SAFETY PROTOCOLS IN PLACE. C/O PAIN IN HIS HIP. MEDICATED WITH PRN PAIN MED. CONTINUES TO PROGRESS TOWARDS D/C GOALS. DRESSING TO PATIENTS LEFT HIP REMOVED. JEFFRY REMOVED AND STERI STRIPS APPLIED. WILL CONTINUE TO MONITER.
[2020-01-04 19:05] VITALS: BP 148/52
--- NOTE | 2020-01-05 04:32 | NUR ---
Patient was in already at the start of shift, with his daughter who was visiting, still present. Following introductions, Patient's daughter informed night nurse of care preferences especially concerning administration of pain medication and pain cream at night so patient can have pain managed better, and be able to sleep. An external urinary catheter had already been applied per patient's preference when he goes to bed. Patient has been alert and oriented x4 while awake, with no periods of confusion or loss of consciousness. He was worried and anxious about his pain, until it was time for his pain medications; both the pain pill and Voltarene gel were administered at the same time, and patient was fast asleep an hour later during hourly rounding. Patient's external catheter came off once in the course of the night, was replaced with another and any wet beddings changed. Patient requested and was helpd to sit up on the side of his bed for a bit, and staff helped him back into bed once he was ready to go back in bed. Patient is breathing and swallowing normally with no signs of distress and a check of his vitals at the begining of shift indicated no abnormalities.
[2020-01-05 05:56] LABS: ABSOLUTE NEUTROPHILS 6.1 thou/uL (1.4-8.2); BASOPHILS 0.6 % (0.0-2.0); EOSINOPHILS 1.4 % (0.0-3.0); HEMATOCRIT 26.9 % (42.0-52.0); HEMOGLOBIN 9.1 gm/dL (14.0-18.0); LYMPHOCYTES 8.6 % (24.0-44.0); MCH 35.7 pg (26.0-34.0); MCHC 33.8 g/dL (28.0-37.0); MCV 105.6 fL (80.0-100.0); MONOCYTES 7.2 % (1.0-8.0); PLATELET COUNT 207 thou/uL (150-400); POLYS 82.2 % (36.0-66.0); RBC 2.55 mil/uL (4.50-6.00); RDW 13.9 % (10.5-14.5); WBC 7.4 thou/uL (4.0-11.0)
[2020-01-05 06:56] LABS: CALCIUM 8.2 mg/dL (8.5-10.1); CREATININE 2.9 mg/dL (0.7-1.3); MAGNESIUM 2.1 mg/dL (1.8-2.4); POTASSIUM 4.6 mmol/L (3.5-5.1)
[2020-01-05 07:10] VITALS: BP 150/43
--- NOTE | 2020-01-05 10:15 | NUR ---
cm notified that pt daughter her and wants to visit with cm. rncm visited with her outside room, concerned " he has to do more than this before coming home. cant life him with by back, has to be able to get in and out of bed himself and use urinal on his own. will discuss with md and psych arnp on dc date and dcp.
--- NOTE | 2020-01-05 14:25 | NUR ---
FAXED REFERRAL TO [facility] SPOKE WITH ADM THEY RECEIVED REFERRAL AND WILL ACCEPT. FAXED REFERRAL TO [facility] SPOKE WITH DAVID IN ADM SHE RECEIVED AND CAN ACCEPT AT DC. DP TO FOLLOW.
--- NOTE | 2020-01-05 14:40 | NUR ---
ASSUMED CARE OF PT AT 0700. PT IS A&OX4 AND VITAL SIGNS ARE STABLE. PT REPORTS PAIN TO LLE, MANAGED WITH PO MEDICATIONS. PT PARTICIPATED IN SCHEDULED THERAPIES. NO BLOOD NOTED IN STOOLS. ACCU CHECKS BID. COVID TEST ORDERED FOR D/C TOMORROW, SAMPLE OBTAINED AND AWAITING RESULTS. PT ENCOURAGED TO TURN Q2H, BARRIER CREAM APPLIED TO BUTTOCKS. FALL PRECUATIOINS IN PLACE AND NURSING WILL CONTINUE TO MONITOR.
[2020-01-05 19:05] VITALS: BP 144/66
--- NOTE | 2020-01-06 03:58 | NUR ---
Patient is alert and oriented x4, pleasant and able to carry on a full concersation and make needs known without any signs of distress. Pateint was excited as he spoke to the nurse about his discharge in the morning and his final destination after discharge. He had some questions about certain aspects of his diascharge, which the nurse answered and also referred him to home health care social worker for further answers. Patient received his bedtime medications including pain pill and cream per his request, watched some TV, and then layed in bed quietly, with eyes closed, breathing visibly and showing no signs of distress. His extrenal urinary catheter was placed at the beginning of shift, per patient request, to protrct skin from getting and staying wet.
[2020-01-06 07:02] VITALS: BP 149/58
--- NOTE | 2020-01-06 09:38 | NUR ---
dc today to skilled at [facility]. send chart copy. bedside nurse to call report to [phone], able to transport by wheel chair van.
[2020-01-06] MEDS ORDERED: VITAMIN D325 MC1 PO (10:26)
[2020-01-06] MEDS ORDERED: HYDROCORTISONE30 G9 RECTAL (10:26)
[2020-01-06] MEDS ORDERED: CEPACOL SORE T1 EAC7 PO (10:26)
[2020-01-06] MEDS ORDERED: VOLTAREN100 GM TOP (10:26)
[2020-01-06] MEDS ORDERED: TYLENOL EXTRA500 MG PO (10:26)
[2020-01-06] MEDS ORDERED: CYMBALTA30 MG PO (10:26)
[2020-01-06] MEDS ORDERED: RESTASIS1 EACH OPHTHALMIC (10:26)
[2020-01-06] MEDS ORDERED: MELATONIN5 M1 PO (10:26)
[2020-01-06] MEDS ORDERED: KAYEXALATE15 GM/601 PO (10:30)
--- NOTE | 2020-01-06 10:51 | NUR ---
PT DISCHARGING TODAY TO [facility] FOR SKILLED STAY FAXED DC ORDERS/SUMMARY TO FACILITY RECEIVED CONFIRMATION AND SPOKE WITH RIANNA IN ADM SHE ARRANGED TRANSPORT BY VAN FOR 1230 TODAY, NOTIFIED PT'S DTR (TIFFANY) OF DC AND TIME OF TRANSPORT. UNIT NOTIFIED AND CHART COPY PER US. RN TO CALL REPORT TO [phone].
[2020-01-06 12:20] VITALS: BP 140/60
--- NOTE | 2020-01-06 12:31 | NUR ---
REPORT CALLED TO [facility]. PATIENT LEFT WITH ALL OF HIS BELONGINGS VIA W/C. DAUGHTER AT BEDSIDE.
== END 2020-01-06 12:33 | DRG 535 ==
PROVIDERS: Hospitalist; Internal Medicine Nephrology; Nurse Practitioner; ADMIT Physical Medicine & Rehabilitation; ATTEND Physical Medicine & Rehabilitation
DX: S72.002A Fracture of unspecified part of neck of left femur, initial encounter for closed fracture (principal); G92 Toxic encephalopathy; N18.4 Chronic kidney disease, stage 4 (severe); W18.39XA Other fall on same level, initial encounter; Y93.89 Activity, other specified; Y92.098 Other place in other non-institutional residence as the place of occurrence of the external cause; Y99.8 Other external cause status; Z88.6 Allergy status to analgesic agent; E11.42 Type 2 diabetes mellitus with diabetic polyneuropathy; E11.22 Type 2 diabetes mellitus with diabetic chronic kidney disease; N18.9 Chronic kidney disease, unspecified; M19.90 Unspecified osteoarthritis, unspecified site; I48.91 Unspecified atrial fibrillation; I12.9 Hypertensive chronic kidney disease with stage 1 through stage 4 chronic kidney disease, or unspecified chronic kidney disease
CPT/HCPCS: 10112

== ENCOUNTER 2021-01-12 09:19 | Inpatient (IN) | payer OTHER, BC ==
[~2021-01-12] VITALS: Ht 193 cm; Wt 104.3 kg
[~2021-01-12 09:19] MED LIST changes: +CEPACOL SORE T1 EAC7 PO; +CYMBALTA30 MG PO; +HYDROCORTISONE30 G9 RECTAL; +KAYEXALATE15 GM/601 PO; +MELATONIN5 M1 PO; +TYLENOL EXTRA500 MG PO; +VITAMIN D325 MC1 PO
[2021-01-12 09:27] VITALS: BP 126/45
[2021-01-12 10:13] LABS: HEMATOCRIT 32.3 % (42.0-52.0); HEMOGLOBIN 10.7 gm/dL (14.0-18.0); MCH 34.6 pg (26.0-34.0); MCHC 33.3 g/dL (28.0-37.0); MCV 103.9 fL (80.0-100.0); RBC 3.11 mil/uL (4.50-6.00); RDW 13.6 % (10.5-14.5); WBC 14.5 thou/uL (4.0-11.0)
[2021-01-12 10:27] LABS: CALCIUM 8.7 mg/dL (8.5-10.1); CREATININE 3.4 mg/dL (0.7-1.3)
[2021-01-12 10:28] LABS: POTASSIUM 6.2 mmol/L (3.5-5.1)
[2021-01-12 11:08] LABS: ABSOLUTE NEUTROPHILS 13.5 thou/uL (1.4-8.2); METAMYELOCYTES 1 %
[2021-01-12 11:09] LABS: MACROCYTES 1+; PLATELET COUNT 209 thou/uL (150-400)
--- NOTE | 2021-01-12 19:05 | NUR ---
REPORT GIVEN TO [facility] AT THIS TIME
[2021-01-12] MEDS ORDERED: GABAPENTIN 100100 MG PO (22:15)
[2021-01-12 23:29] VITALS: BP 106/48
[2021-01-13 00:21] VITALS: BP 147/52
[2021-01-13 00:44] VITALS: BP 140/59
[2021-01-13 04:06] VITALS: BP 151/66
[2021-01-13 04:42] LABS: ALBUMIN 2.4 g/dL (3.4-5.0); CALCIUM 8.4 mg/dL (8.5-10.1); CREATININE 3.1 mg/dL (0.7-1.3); PHOSPHORUS 4.5 mg/dL (2.6-4.7); POTASSIUM 5.3 mmol/L (3.5-5.1)
--- NOTE | 2021-01-13 07:06 | NUR ---
Pt admitted to unit at about past midnight. ALert and oriented. Forgetful. Gisela Durán lives with pt and was at bedside during admission. Dtr contributed to HX. Pt oriented to rm and call light. Fall precaution remains in place. Renal consult called in the ED. VSS on 2L NC. Nursing to continue to monitor.
[2021-01-13 08:27] LABS: HEMATOCRIT 31.9 % (42.0-52.0); HEMOGLOBIN 10.7 gm/dL (14.0-18.0); MCHC 33.7 g/dL (28.0-37.0); MCV 103.9 fL (80.0-100.0); PLATELET COUNT 210 thou/uL (150-400); RBC 3.07 mil/uL (4.50-6.00); RDW 13.5 % (10.5-14.5); WBC 10.6 thou/uL (4.0-11.0)
[2021-01-13 08:45] LABS: ALBUMIN 2.5 g/dL (3.4-5.0); CALCIUM 8.7 mg/dL (8.5-10.1); CREATININE 3.1 mg/dL (0.7-1.3); MAGNESIUM 2.3 mg/dL (1.8-2.4); PHOSPHORUS 4.6 mg/dL (2.6-4.7); POTASSIUM 4.9 mmol/L (3.5-5.1); TOTAL BILIRUBIN 0.4 mg/dL (0.2-1.0); TOTAL PROTEIN 7.2 g/dL (6.4-8.2)
[2021-01-13 11:30] VITALS: BP 133/52
[2021-01-13 13:14] LABS: METAMYELOCYTES 1 %
[2021-01-13 13:15] LABS: MACROCYTES 1+
[2021-01-13 15:45] VITALS: BP 134/43
[2021-01-13 19:55] VITALS: BP 144/61
[2021-01-14 04:45] VITALS: BP 142/56
--- NOTE | 2021-01-14 05:24 | NUR ---
PT IS ALERT AND CONFUSED X4. LUNGS ARE CLEAR TO DIMINSHED. ON 2 LITERS NASAL CANULA. SINUS ARYTHMIA VOIDS PER URINAL AT BEDSIDE. DENIES ANY COMPLAINTS OF PAIN PT PULLED IV IN LEFT ARM OUT. REMAINS ON AMNIO DRIP ON PER PROTOCAL AT THIS TIME . CALLL LIGHT WITHIN REACH IF NEEDS ASSITANCE.
[2021-01-14 05:31] LABS: RBC 2.96 mil/uL (4.50-6.00); RDW 13.8 % (10.5-14.5)
[2021-01-14 05:33] LABS: HEMATOCRIT 31.1 % (42.0-52.0); HEMOGLOBIN 10.5 gm/dL (14.0-18.0); MCH 35.6 pg (26.0-34.0); MCHC 33.8 g/dL (28.0-37.0); MCV 105.2 fL (80.0-100.0); WBC 17.6 thou/uL (4.0-11.0)
[2021-01-14 05:49] LABS: CALCIUM 8.6 mg/dL (8.5-10.1); CREATININE 2.8 mg/dL (0.7-1.3)
[2021-01-14 05:56] LABS: POTASSIUM 4.9 mmol/L (3.5-5.1)
--- NOTE | 2021-01-14 08:04 | NUR ---
PT REFUSED OT THIS MORNING AND DOES NOT FEEL HE NEEDS IT. OT WILL DOUBLE CHECK WITH PATIENT TOMORROW AM.
--- NOTE | 2021-01-14 11:28 | NUR ---
Met with patient who reports he resides at home in [facility] with dtr who is retired RN. Patient reports on step to enter condo. He reports 2 walker and 2 w/c. He does not use w/c he uses walker in [facility]. He has an excercise room at home. He excercises daily 30 minutes at day. Hx of [facility] in past. Hx of home oxygen for a few months then tapered off and no need for home oxygen. Patient currently on oxygen. Patient does not feel he needs home health care. Reports he resides with an RN. he excercises daily. he no longer drives. Dtr takes patient to apts. He reports independent with all adls. He administers his own medications. Casemgt following for dc planning.
[2021-01-14 11:48] VITALS: BP 138/56
--- NOTE | 2021-01-14 11:51 | NUR ---
PLEASE SEE OT VARIANCE. PATIENT REFUSED OT EVAL TWICE TODAY
[2021-01-14 15:05] VITALS: BP 130/41
[2021-01-14 22:42] VITALS: BP 144/60
[2021-01-15 03:39] VITALS: BP 150/69
[2021-01-15 07:13] LABS: ALBUMIN 2.3 g/dL (3.4-5.0); CALCIUM 8.2 mg/dL (8.5-10.1); CREATININE 2.8 mg/dL (0.7-1.3); PHOSPHORUS 5.2 mg/dL (2.5-4.9); POTASSIUM 5.4 mmol/L (3.5-5.1)
[2021-01-15 09:00] VITALS: BP 90/64
[2021-01-15 11:35] VITALS: BP 148/63
[2021-01-15 16:30] VITALS: BP 165/67
--- NOTE | 2021-01-15 16:44 | NUR ---
PATIENT ALERT AND ORIENTATED X3; HAS PERIODS OF CONFUSION. TOOK OVER CARE FOR THIS PATIENT AT 0700. PATIENT RESTING COMFORTABLY IN BED; CURRENTLY WEARING 2 L OXYGEN VIA NASAL CANNULA. PATIENT BECOMES SHORT OF AIR WITH EXERTION. PHYSICAL THERAPY TRIALED AMBULATING TODAY WITHOUT OXYGEN BUT PATIENT OXYGEN SATURATION DID NOT TOLERATE THIS ACTIVITY. PATIENT DENIES ANY CHEST PAIN, DIZZINESS, PALPATIONS, HEADACHE, NAUSEA, AND VOMITING. PATIENT'S FAMILY MEMBER CAME TO VISIT TODAY. PATIENT DENIES ANY ADDITIONAL NEEDS AT THIS TIME. FALL PRECAUTIONS IN PLACE AND CALL LIGHT AND PERSONAL BELONGINGS WITHIN REACH.
[2021-01-15 19:45] VITALS: BP 153/60
[2021-01-16 04:45] VITALS: BP 148/49
[2021-01-16 05:38] LABS: BASOPHILS 0.6 % (0.0-2.0); EOSINOPHILS 0.5 % (0.0-3.0); HEMATOCRIT 33.4 % (42.0-52.0); LYMPHOCYTES 11.3 % (24.0-44.0); MCH 34.5 pg (26.0-34.0); MCHC 32.9 g/dL (28.0-37.0); MCV 104.9 fL (80.0-100.0); MONOCYTES 5.9 % (1.0-8.0); PLATELET COUNT 208 thou/uL (150-400); POLYS 81.7 % (36.0-66.0); RBC 3.18 mil/uL (4.50-6.00); RDW 13.8 % (10.5-14.5); WBC 7.4 thou/uL (4.0-11.0)
[2021-01-16 06:14] LABS: ALBUMIN 2.3 g/dL (3.4-5.0); CALCIUM 8.2 mg/dL (8.5-10.1); CREATININE 2.8 mg/dL (0.7-1.3); MAGNESIUM 2.3 mg/dL (1.8-2.4); PHOSPHORUS 5.1 mg/dL (2.5-4.9); POTASSIUM 5.1 mmol/L (3.5-5.1)
[2021-01-16 07:00] VITALS: BP 146/52
[2021-01-16 11:00] VITALS: BP 143/51
--- NOTE | 2021-01-16 11:39 | NUR ---
DISCUSSED WITH DR. LY PATIENT'S REQ FOR PRN NORCO EARLY. VERBAL ORDER TO GIVE PATIENT DOSE EARLY.
[2021-01-16] MEDS ORDERED: CEPACOL SORE T1 EAC7 PO (12:38)
[2021-01-16] MEDS ORDERED: VELTASSA8.4 GM PO (12:38)
[2021-01-16] MEDS ORDERED: SODIUM BICARBO650 M3 PO (12:38)
[2021-01-16] MEDS ORDERED: TESSALON PERLE100 MG PO (12:38)
[2021-01-16] MEDS ORDERED: ROBITUSSIN100 MG/53 PO (12:38)
[2021-01-16] MEDS ORDERED: AUGMENTIN 875-1 EACH PO (12:43)
[2021-01-16 14:03] VITALS: BP 143/51
--- NOTE | 2021-01-16 14:29 | NUR ---
PATIENT SET UP WITH HOME O2. PATIENT WAS PROVIDED WITH DISCHARGE INSTRUCTIONS AND A SUMMARY OF NEW MEDICATIONS AND FOLLOW-UP APPOINTMENTS TO MAKE. DAUGHTER PRESENT DURING DISUSSION. QUESTIONS AND CONCERNS WERE ADDRESSED AND RESOLVED. IV ACCESS AND TELEMETRY DISCONTINUED. PATIENT TRANSPORTED VIA WHEELCHAIR OUT OF HOSPITAL.
[2021-01-16 15:09] VITALS: BP 143/51
--- NOTE | 2021-01-16 15:27 | NUR ---
Patient to dc home today with HH care and home oxygen. Gave patient resource for HH agencies he has no preference. Patients dtr at bedside. Patient agreeable to referral from [email or web address]. Liason met with patient and plan f[place]u [place] No preference for DME for home oxygen. Wants portable concentrator. Rec prescription for home oxygen. Faxed orders to [facility]. They delivered tank to room. No further needs.
== END 2021-01-16 14:49 | disposition home health service (06) | DRG 871 ==
LOC: ER 09:19 → 2N 12:32 → EROBS 12:32 → 2N 01-13 00:17
PROVIDERS: Emergency Medicine; Internal Medicine Nephrology; ADMIT Internal Medicine; ATTEND Internal Medicine
DX: A41.9 Sepsis, unspecified organism (principal); J96.01 Acute respiratory failure with hypoxia; N17.0 Acute kidney failure with tubular necrosis; J69.0 Pneumonitis due to inhalation of food and vomit; N18.6 End stage renal disease; F11.20 Opioid dependence, uncomplicated; I12.0 Hypertensive chronic kidney disease with stage 5 chronic kidney disease or end stage renal disease; M47.896 Other spondylosis, lumbar region; E11.22 Type 2 diabetes mellitus with diabetic chronic kidney disease; M10.9 Gout, unspecified; F32.9 Major depressive disorder, single episode, unspecified; G89.4 Chronic pain syndrome; M54.9 Dorsalgia, unspecified; F43.20 Adjustment disorder, unspecified; Z20.822 Contact with and (suspected) exposure to COVID-19; F03.90 Unspecified dementia, unspecified severity, without behavioral disturbance, psychotic disturbance, mood disturbance, and anxiety; I48.91 Unspecified atrial fibrillation; E78.5 Hyperlipidemia, unspecified; R53.81 Other malaise; E55.9 Vitamin D deficiency, unspecified; E87.5 Hyperkalemia; Z98.49 Cataract extraction status, unspecified eye; Z88.6 Allergy status to analgesic agent; Z88.1 Allergy status to other antibiotic agents; Z87.891 Personal history of nicotine dependence; Z23 Encounter for immunization
CPT/HCPCS: 10081